=== PATIENT | female | born 1950 | race Caucasian/White ===

== ENCOUNTER → 2016-12-21 | Outpatient (CLI) | payer OTHER, MEDICARE ==
[~2016-12-21] MED LIST: ASPCH81X PO; LPR25 PO; OXYC-57 PO; PRAV20TA PO; ZTHM250 PO
[2016-12-21 12:44] LABS: BASO % 0.6 %; BASO ABS # 0.05 K/uL (0-0.2); COMPLETE YES; EOS % 0.9 %; HEMATOCRIT 46.2 % (37-47); IG% 0.2 %; LYMPH % 22.8 %; MEAN CELL VOLUME 94.1 fL (80-100); MEAN CORPUSCULAR HGB CONC 32.9 g/dl (32-36); MEAN PLATELET VOLUME 10.5 fL (7.4-10.4); MONO % 6.8 %; NEUT % 68.7 %; PLATELET COUNT 292 K/uL (130-400); RED BLOOD COUNT 4.91 M/uL (4.2-5.4); WHITE BLOOD COUNT 8.76 K/uL (4.8-10.8)
[2016-12-21 12:57] LABS: ALT/SGPT 47 U/L (12-78); BLOOD UREA NITROGEN 14 mg/dl (7-18); BUN/CREATININE RATIO 17.6 (10-20); CALCIUM 9.1 mg/dl (8.5-10.1); CARBON DIOXIDE 27 mmol/L (21-32); CHLORIDE 103 mmol/L (98-107); CHOLESTEROL 181 mg/dl (0-200); ESTIMATED AVERAGE GLUCOSE 117 mg/dl; GLUCOSE 99 mg/dl (70-99); HA1C FLAG Normal (Normal); SODIUM 138 mmol/L (136-145); TRIGLYCERIDES 68 mg/dl (0-150); VERY LOW DENSITY LIPOPROT CALC 14 mg/dl
[2016-12-21 12:58] LABS: ALKALINE PHOSPHATASE 100 U/L (45-117); AST/SGOT 40 U/L (15-37); CHOLESTEROL/HDL RATIO 2.5; HDL CHOLESTEROL 72 mg/dl
== END | disposition home or self-care (01) ==
LOC: C.LABSPEC 12:24
PROVIDERS: ATTEND Internal Medicine
DX: E78.5 Hyperlipidemia, unspecified (principal); R73.9 Hyperglycemia, unspecified; J44.9 Chronic obstructive pulmonary disease, unspecified; I47.1 Supraventricular tachycardia

== ENCOUNTER → 2017-02-02 | Outpatient (CLI) | payer OTHER, MEDICARE ==
[~2017-02-02] MED LIST changes: +ASPI81TA28 PO; +ATOR10TA82 PO; +AZIT-57 PO; +LEVO1TAB33 PO; +PRED5PAK3 PO; +SYMIN PO; +VNTHFA/IN INH; -ZTHM250 PO
--- NOTE | 2017-02-02 12:47 | MAMMOGRAPHY REPORT ---
BILATERAL DIGITAL SCREENING MAMMOGRAM WITH CAD: 02/02/2017 CLINICAL HISTORY: Routine screening. Patient has no complaints. TECHNIQUE: Bilateral CC and MLO views were obtained. Current study was also evaluated with a Comput er Aided Detection (CAD) system. COMPARISON: Comparison is made to exams dated: 01/07/2016 mammogram, 01/03/2015 mammogram, 01/01/2014 mammogram, 12/25/2012 mammogram, 12/27/2013 mammogram, and 12/16/2011 mammogram - [facility] enter. BREAST COMPOSITION: There are scattered areas of fibroglandular density in both breasts. FINDINGS: There are mild vascular calcifications in the breasts. No suspicious mass, architectural distortion or cluster of microcalcifications is seen. IMPRESSION: ACR BI-RADS CATEGORY 1: NEGATIVE There is no mammographic evidence of malignancy. A 1 year screening mammogram is recommended. The p atient will receive written notification of the results. Approximately 10% of breast cancers are not detected with mammography. A negative mammographic repor t should not delay biopsy if a clinically suggestive mass is present. Carile Tavares M.D. ay/:02/02/2017 11:19:51 Construction Grip: Meli GARCIA(Jennifer)(Mae), [facility] letter sent: Normal 1/2 BI-RADS Code: ACR BI-RADS Category 1: Negative
== END | disposition home or self-care (01) ==
LOC: C.MAMM 09:40
PROVIDERS: ATTEND Internal Medicine
DX: Z12.31 Encounter for screening mammogram for malignant neoplasm of breast (principal)

== ENCOUNTER 2017-02-19 13:24 | Emergency (ER) | payer OTHER, MEDICARE ==
[~2017-02-19] VITALS: Ht 154.9 cm; Wt 52.4 kg
[~2017-02-19 13:24] MED LIST changes: -ASPCH81X PO; -ASPI81TA28 PO; -ATOR10TA82 PO; -LEVO1TAB33 PO; -LPR25 PO; -OXYC-57 PO; -PRAV20TA PO; -PRED5PAK3 PO; -SYMIN PO; -VNTHFA/IN INH
[2017-02-19 13:37] VITALS: TEMP 36.4; Ht 154.9 cm; Wt 52.4 kg
[2017-02-19] MEDS ORDERED: ONDANSETRON INJ 2 MG/ML 2 ML VIAL IV STA (13:51)
[2017-02-19] MEDS ORDERED: MoRPHine SULFATE 4 MG/ML 1 ML CARP\\VIAL IV STA (13:51)
[2017-02-19] MEDS ORDERED: LPR25 PO (13:59)
[2017-02-19] MEDS ORDERED: ASPCH81X PO (13:59)
[2017-02-19] MEDS ORDERED: PRAV20TA PO (13:59)
--- NOTE | 2017-02-19 14:32 | DIAGNOSTIC IMAGING REPORT ---
LEFT HUMERUS 2 VIEWS HISTORY: Fall. distal humeral pain COMPARISON: None. FINDINGS: There is no fracture or dislocation. Soft tissues are unremarkable. No radiopaque foreign bodies. IMPRESSION: No fracture or dislocation within the left humerus. Electronically signed by: Aguilar Stevenson M.D. 02/19/2017 2:31 PM Dictated Date/Time: 02/19/2017 2:30 PM
--- NOTE | 2017-02-19 14:34 | DIAGNOSTIC IMAGING REPORT ---
LEFT WRIST 2 VIEW CLINICAL HISTORY: LEFT WRIST DEFORMITY. Fall. COMPARISON STUDY: None. FINDINGS: Diffuse soft tissue swelling. Impacted ulnar styloid fracture. There is also a comminuted and impacted distal radius fracture which likely extends to articular surface. This demonstrates dorsal angulation and 7 mm of dorsal displacement. IMPRESSION: Distal radius and ulnar styloid fractures as described above. Electronically signed by: Aguilar Stevenson M.D. 02/19/2017 2:32 PM Dictated Date/Time: 02/19/2017 2:31 PM
[2017-02-19] MEDS ORDERED: PROPOFOL IV EMULSION 10 MG/ML 20 ML VIAL IV ONE (14:47)
[2017-02-19 14:58] VITALS: BP 109/69; PULSE 55; O2SAT 93
--- NOTE | 2017-02-19 15:53 | EMERGENCY ROOM VISIT NOTE ---
Pre-Mod Sedation Assessment General Date of Moderate Sedation: Feb 19, 2017. Vital Signs: Vital Signs Past 12 Hours Date Time Temp Pulse Resp B/P Pulse Ox O2 Delivery O2 Flow Rate FiO2 02/19/17 14:58 55 20 109/69 93 Room Air 02/19/17 14:56 53 02/19/17 14:54 55 20 109/69 93 Room Air 02/19/17 13:37 36.4 57 18 120/79 93 Room Air Review Cardiovascular: regular rate, rhythm, no edema, no gallop, no murmur, normal peripheral pulses Abdomen: normal bowel sounds, non tender, soft Lungs: chest non-tender, no respiratory distress (Chronic cough with COPD), + wheezing Airway Class: III Pre-Sedation Airway Assessment Oral Cavity: Dentures Able to Visualize Vocal Cords: No Short Thick Neck: No Hx of Sleep Apnea: Yes (Snores loudly per ) Smoking Status: Current Every Day Smoker Mallampati Classification: Class II ASA Classification: Class III Procedure Planning Contraindications-for Mod Sed: None Yes Notes The planned sedation has been discussed with the patient and consent obtained. I have identified the patient, determined the appropriateness of sedation and have assessed the patient immediately prior to the procedure. All medicine(s) and interventions are by my order.
--- NOTE | 2017-02-19 15:56 | EMERGENCY ROOM VISIT NOTE ---
Post-Moderate Sedation Plan General Date of Moderate Sedation Feb 19, 2017. Vital Signs: Vital Signs Past 12 Hours Date Time Temp Pulse Resp B/P Pulse Ox O2 Delivery O2 Flow Rate FiO2 02/19/17 14:58 55 20 109/69 93 Room Air 02/19/17 14:56 53 02/19/17 14:54 55 20 109/69 93 Room Air 02/19/17 13:37 36.4 57 18 120/79 93 Room Air Review - Discharge Plan Post Moderate Sedation Plan: Procedural Sedation Indication: Left wrist fracture requiring sedation by Ortho - Dr Alvares. Last Ate: >6 hrs ago - toast Previous issues with sedation: Hypotension with Colonoscopy Snore: Yes Emergent: Yes ASA: III Dentures: Yes - removed Time Out: 15:31 Time Recovered: 15:49 Total time: 25 minutes including pre-sedation evaluation, sedation, post- sedation recovery, etc. Written consent was obtained after the risks and benefits were explained to the patient/, including, but not limited to aspiration, allergic reaction, breathing difficulties, cardiac complications, vomiting, pain, event recall, bleeding, and/or infection. Pre-sedation examination and paperwork completed. The patient was on 100% oxygen via NRB prior to the procedure. Continuos end tidal CO2 monitoring, pulse oximetry, and cardiac monitoring were utilized. Suction, airway equipment, medications, respiratory equipment, and appropriate personnel were prepared prior to the initiation of the procedure. A time out was taken. Sedation was achieved utilizing 90 mg of propofol. After I observed the patient had reached the appropriate level of sedation the main procedure was performed without complication. Sedation was discontinued and the monitoring continued. The patient recovered quickly from the effects of the medication without complication or adverse event. On clinical assessment, the patient appears to have tolerated the conscious sedation without complications. Patient is recovering as anticipated. Patient will continue to be monitored by nursing and may be discharged when conscious sedation discharge criteria are met.
--- NOTE | 2017-02-19 16:03 | DIAGNOSTIC IMAGING REPORT ---
LEFT WRIST 2 VIEW CLINICAL HISTORY: post reduction left wrist COMPARISON STUDY: Left wrist 02/19/2017. FINDINGS: Overlying cast material obscures fine bony detail. Status post reduction of the distal radius and ulnar styloid fractures. The alignment of the radius is near-anatomic. There is 4 mm of radial displacement of the ulnar styloid fracture. Diffuse soft tissue swelling. IMPRESSION: Reduction of the distal radius fracture which demonstrates near anatomic alignment. Mildly displaced ulnar styloid fracture. Electronically signed by: Aguilar Stevenson M.D. 02/19/2017 4:01 PM Dictated Date/Time: 02/19/2017 4:00 PM
[2017-02-19] MEDS ORDERED: OXYC-57 PO (16:04)
[2017-02-19 16:08] VITALS: BP 105/60; PULSE 60; O2SAT 92
[2017-02-19 16:17] VITALS: BP 138/70; PULSE 55; O2SAT 94
--- NOTE | 2017-02-19 16:35 | ORTHOPEDIC CONSULTATION ---
DATE OF CONSULTATION: 02/19/2017 CHIEF COMPLAINT: Displaced left distal radius fracture. HISTORY OF PRESENT ILLNESS: Jasmin is a pleasant 66-year-old female who fell earlier today, sustaining a fracture to her left distal radius. There was obvious deformity of her wrist. So she came to the Emergency Room where radiographs demonstrated displaced left distal radius fracture. Orthopedics was consulted for a closed reduction and treatment. PAST MEDICAL HISTORY: Hypertension, supraventricular tachycardia and bronchitis. MEDICATIONS: Include aspirin 81 mg daily, Lopressor 25 mg daily, and Pravachol daily. ALLERGIES: INCLUDE PENICILLIN AND SULFA DRUGS. PAST SURGICAL HISTORY: Denies. SOCIAL HISTORY: She is and is still active with her . REVIEW OF SYSTEMS: She complains of left wrist pain. All other pertinent review of systems are negative. PHYSICAL EXAMINATION: MUSCULOSKELETAL: There is a gross deformity of her left wrist. There is a dorsal angulation. There are no abrasions, lesions, lacerations of the skin. Her radial, median and ulnar nerves were all checked and intact. X-rays reviewed of the left distal radius do show mostly a 2-part left distal radius fracture with about 50% posterior translation of 45 degrees of dorsal angulation. IMPRESSION: Displaced left distal radius fracture. PLAN: We did a closed reduction in the Emergency Room. Post reduction radiographs did show near anatomic alignment. She was placed in a coaptation splint and given an arm sling. She was given oral pain medications. Instructed to follow up with [facility] in about 3-5 days for x-rays and placement in a cast.
--- NOTE | 2017-02-21 07:55 | OPERATIVE REPORT ---
DATE OF OPERATION: 02/19/2017 PREOPERATIVE DIAGNOSIS: Displaced left distal radius fracture. POSTOPERATIVE DIAGNOSIS: Same. PROCEDURE: Closed reduction and application of splint of the left distal radius fracture. SURGEON: Dr. Cesar Alvares. CHARGEMASTER ANALYST: None. ANESTHESIA: Sedation with propofol. COMPLICATIONS: None. CONDITION: Stable to PACU. INDICATIONS: Jasmin is a 66-year-old female who fell earlier today sustaining a displaced left distal radius fracture. She came to the Emergency Room where radiographs confirmed a significantly displaced fracture. She elected to undergo closed reduction. She understood the risks, benefits, alternatives to procedure and elected to proceed. The operative extremity was identified and a timeout was done. She was given propofol by the Emergency Room physician. Once proper sedation was obtained, the distal radius was easily reduced. She was then placed in a coaptation splint. Proper molding of the splint was done. Once this cement had hardened, x-rays were obtained and it showed near anatomic alignment of the fracture. She tolerated the procedure well. I attest to the content of the Intraoperative Record and any orders documented therein. Any exceptio ns are noted below.
--- NOTE | 2017-02-25 17:28 | EMERGENCY ROOM VISIT NOTE ---
ED Visit Note First contact with patient: 13:44 CHIEF COMPLAINT: Left wrist injury History of present illness: This 66-year-old white female patient complains of moderate constant left wrist pain today after a fall at home. She has an obvious deformity. The pain is worse with any movement of the wrist or digits. No laceration, no numbness or weakness. No other injury. The fall was not associated with dizziness or fainting. There were no palpitations, no chest pain, no difficulty breathing, no headache, no lightheadedness or weakness. Pain is 8/10. No prior history of significant wrist injury. Right-hand- dominant. Her accompanies her today. No treatment yet. REVIEW OF SYSTEM: HEENT: No dizziness, visual problems, hearing loss, or tinnitus. There is no difficulty swallowing and no oral lesions are present. LYMPH: No adenopathy. PULMONARY: No cough, shortness of breath, sputum production or hemoptysis. CARDIOVASCULAR: No chest pain, palpitations, shortness of breath or peripheral edema. GASTROINTESTINAL: No diarrhea, constipation, nausea, vomiting, or abdominal pain. GENITOURINARY: No dysuria, frequency, urgency or nocturia. NEUROLOGIC: No weakness, muscle tenderness, epilepsy or history of neurological problems. MUSCULOSKELETAL: No history of joint tenderness/swelling. Positive history of arthritis and arthralgias. SKIN: No rashes or lesions. ENDOCRINE: No history of diabetes, thyroid disorders, or abnormal hair growth. PMH: Supplemental sheet was reviewed and signed. Previous surgeries: None Medical history: Significant for hypertension and elevated cholesterol. History of SVT. Current medications: Aspirin, metoprolol, Pravachol Allergies: Penicillin and sulfa SOCIAL HISTORY: Patient lives at home with her . Positive tobacco use, no EtOH use. Retired. PHYSICAL EXAM: Vital Signs: Afebrile. Reviewed and filed in patient's chart. General: Well-developed, well-nourished, elderly white female, in no acute distress. Obvious discomfort. She is sitting on a bed. MENTAL STATUS: Alert and oriented. Skin: Warm and dry with good turgor. No rashes or lesions. No ecchymosis or erythema. The patient is not diaphoretic. No abrasions. Noticeable edema and deformity at the dorsal wrist. Musculoskeletal: There is tenderness over the distal radius with significant swelling. Range of motion is very limited secondary to pain. Obvious deformity. No pain with palpation over the metacarpal heads or digits. There is intact motion of the digits, including opposition and circumduction of the thumb. There is also pain with palpation over the proximal forearm and elbow. She has intact motor function to the elbow. No pain with palpation over the proximal humerus or shoulder. Neurologic: The hand is warm and well perfused and the fingers have normal sensation. Median, radial, and ulnar nerve functions are clearly intact. EMERGENCY DEPARTMENT COURSE: Radiographic images obtained today of the wrist are positive for comminuted significantly displaced distal radius fracture. Angulation of approximate 45. Left humerus films were unremarkable. These were read by radiology. DIAGNOSIS: Left wrist displaced distal radius fracture DISCHARGE INSTRUCTIONS & TREATMENT: The patient was educated regarding today's findings. Conservative care measures were discussed. IV was established. She was given morphine 4 mg IV and Zofran 4 mg IV for pain control. Radial Imaging was obtained. Consult was obtained from Dr. Alvares for reduction. Please see his dictation for final management. Conscious sedation was provided by Dr. Hay. Patient was seen in conjunction with Dr. Hay, who also evaluated the patient and concurred with today's diagnosis and treatment plan. Current/Historical Medications Scheduled Aspirin (Aspirin Chewable), 81 MG PO DAILY Metoprolol Tartrate (Lopressor), 12.5 MG PO BID Pravastatin (Pravachol ), 1 TAB PO DAILY Scheduled PRN Oxycodone/Acetaminophen 5MG/325MG (Percocet 5MG/325MG), 1-2 TABS PO Q6 PRN for Pain Allergies Coded Allergies: Penicillins (Unverified Allergy, Unknown, 02/19/17) Sulfa Drugs (Unverified Allergy, Unknown, 02/19/17) Vital Signs Date Time Temp Pulse Resp B/P Pulse Ox O2 Delivery O2 Flow Rate FiO2 02/19/17 16:17 55 18 138/70 94 Room Air 02/19/17 16:08 60 14 105/60 92 Room Air 02/19/17 15:55 50 16 104/64 99 Nasal Cannula 4.0 02/19/17 15:40 51 16 95/59 98 Nasal Cannula 6.0 02/19/17 15:35 54 14 98/59 93 Nasal Cannula 4.0 02/19/17 15:31 60 14 105/60 92 Room Air 02/19/17 14:58 55 20 109/69 93 Room Air 02/19/17 14:56 53 02/19/17 14:54 55 20 109/69 93 Room Air 02/19/17 13:37 36.4 57 18 120/79 93 Room Air Medications Administered Medications (Trade) Dose Ordered Sig/Sofia Route Start Time Stop Time Status Last Admin Dose Admin Morphine Sulfate (MoRPHine SULFATE INJ) 4 mg NOW STAT IV 02/19/17 13:51 02/19/17 13:54 DC 02/19/17 14:04 4 MG Ondansetron HCl (Zofran Inj) 4 mg NOW STAT IV 02/19/17 13:51 02/19/17 13:54 DC 02/19/17 14:04 4 MG Propofol (Diprivan Iv Emulsion 20ml Vial) 200 mg STK-MED ONCE IV 02/19/17 14:47 02/19/17 14:48 DC 02/19/17 15:35 20 MG Departure Information Impression Primary Impression: Fall at home Additional Impression: Closed fracture of left distal radius Dispostion Home / Self-Care Condition GOOD Prescriptions Oxycodone/Acetaminophen 5MG/325MG (PERCOCET 5MG/325MG) Tab 1-2 TABS PO Q6 Y for Pain, #24 TAB For Initial Treatment Prov: Jefferson Gill,P.A. 02/19/17 Referrals Gurjit Healy M.D. (PCP) Cesar Alvares, DO Forms CARE OF CASTS, WORK / SCHOOL INSTRUCTIONS, HOME CARE DOCUMENTATION FORM, IMPORTANT VISIT INFORMATION Patient Instructions Sedation Procedural, [facility] Additional Instructions Ice and elevate frequently to reduce pain and swelling Percocet 1-2 tablets every 6 hours as needed for severe pain-no driving Call Dr. Alvares's office on Tuesday for follow-up Keep the splint on and dry at all times Use your sling as needed for comfort Gentle finger motion daily to reduce swelling Return to the ED for any other concerns Problem Qualifiers
[2017-08-02] MEDS ORDERED: ATOR10TA82 PO (02:51)
[2017-08-02] MEDS ORDERED: ASPI81TA28 PO (02:52)
[2017-08-04] MEDS ORDERED: VNTHFA/IN INH (08:02)
[2017-08-04] MEDS ORDERED: PRED5PAK3 PO (08:02)
[2017-08-04] MEDS ORDERED: LEVO1TAB33 PO (08:02)
[2017-08-04] MEDS ORDERED: SYMIN PO (08:02)
== END 2017-02-19 16:30 | disposition home or self-care (01) ==
LOC: C.EDB 13:25 → C.ED 16:30
DX: S52.502A Unspecified fracture of the lower end of left radius, initial encounter for closed fracture (principal); W19.XXXA Unspecified fall, initial encounter; I10 Essential (primary) hypertension; E78.00 Pure hypercholesterolemia, unspecified; Z72.0 Tobacco use; Z79.82 Long term (current) use of aspirin; Z79.899 Other long term (current) drug therapy

== ENCOUNTER → 2017-06-21 | Outpatient (CLI) | payer OTHER, MEDICARE ==
[~2017-06-21] MED LIST changes: +ASPCH81X PO; +ASPI81TA28 PO; +ATOR10TA88 PO; -AZIT-57 PO; +LEVO1TAB33 PO; +LPR25 PO; +OXYC-57 PO; +PRAV20TA PO; +PRED5PAK3 PO; +SYMIN PO; +VNTHFA/IN INH
[2017-06-21 13:19] LABS: ESTIMATED AVERAGE GLUCOSE 123 mg/dl; HA1C FLAG Normal (Normal)
[2017-06-21 13:31] LABS: BLOOD UREA NITROGEN 10 mg/dl (7-18); BUN/CREATININE RATIO 15.3 (10-20); CALCIUM 9.1 mg/dl (8.5-10.1); CARBON DIOXIDE 28 mmol/L (21-32); CHLORIDE 104 mmol/L (98-107); CHOLESTEROL 156 mg/dl (0-200); CREATININE 0.66 mg/dl (0.60-1.20); GLUCOSE 98 mg/dl (70-99); SODIUM 138 mmol/L (136-145)
[2017-06-21 13:34] LABS: CHOLESTEROL/HDL RATIO 2.1; HDL CHOLESTEROL 73 mg/dl; TRIGLYCERIDES 64 mg/dl (0-150); VERY LOW DENSITY LIPOPROT CALC 13 mg/dl
== END | disposition home or self-care (01) ==
LOC: C.LABSPEC 12:16
PROVIDERS: ATTEND Internal Medicine
DX: R73.9 Hyperglycemia, unspecified (principal); E78.5 Hyperlipidemia, unspecified

== ENCOUNTER → 2017-12-20 | Outpatient (CLI) | payer OTHER, MEDICARE ==
[~2017-12-20] MED LIST changes: -ASPCH81X PO; +ATOR10TA82 PO; -ATOR10TA88 PO; -LEVO1TAB33 PO; -OXYC-57 PO; -PRAV20TA PO; -PRED5PAK3 PO
[2017-12-20 13:31] LABS: HEMOGLOBIN A1C 5.9 % (4.5-5.6)
[2017-12-20 13:59] LABS: ALBUMIN 3.6 gm/dl (3.4-5.0); ALKALINE PHOSPHATASE 102 U/L (45-117); ALT/SGPT 35 U/L (12-78); AST/SGOT 21 U/L (15-37); BLOOD UREA NITROGEN 18 mg/dl (7-18); CALCIUM 8.8 mg/dl (8.5-10.1); CARBON DIOXIDE 25 mmol/L (21-32); CHOLESTEROL 175 mg/dl (0-200); CREATININE 0.78 mg/dl (0.60-1.20); GLUCOSE 108 mg/dl (70-99); LDL CHOLESTEROL (DIRECT) 108 mg/dl; POTASSIUM 3.7 mmol/L (3.5-5.1); SODIUM 138 mmol/L (136-145)
== END | disposition home or self-care (01) ==
LOC: C.LABSPEC 12:18
PROVIDERS: ATTEND Internal Medicine
DX: E78.5 Hyperlipidemia, unspecified (principal); R73.9 Hyperglycemia, unspecified; J44.9 Chronic obstructive pulmonary disease, unspecified

== ENCOUNTER 2019-09-02 16:18 | Inpatient (IN) ==
[2019-09-02] MEDS ORDERED: methylPREDNISolone 125 MG/2 ML VIAL IV STA (16:47)
[2019-09-02] MEDS ORDERED: ALBUT/IPRATROP 3MG/0.5MG NEB 3 ML VIAL NEB ONE (16:47)
[2019-09-02 17:09] LABS: Basophils # (auto) 0.04 K/uL (0-0.2); Basophils % (auto) 0.4 %; Eosinophils # (auto) 0.59 K/uL (0-0.5); Eosinophils % (auto) 5.6 %; Hematocrit (blood only) 44.5 % (37-47); Hemoglobin 15.1 g/dL (12.0-16.0); Immature Granulocytes # (auto) 0.02 K/uL (0.00-0.02); Immature Granulocytes % (auto) 0.2 %; Lymphocytes # (auto) 2.24 K/uL (1.2-3.4); Lymphocytes % (auto) 21.2 %; Mean Corpuscular Hemoglobin 32.3 pg (25-34); Mean Corpuscular Hgb Conc 33.9 g/dL (32-36); Mean Corpuscular Volume 95.1 fL (80-100); Monocytes # (auto) 1.12 K/uL (0.11-0.59); Monocytes % (auto) 10.6 %; Neutrophils # (auto) 6.58 K/uL (1.4-6.5); Platelet Count 254 K/uL (130-400); RDW Coefficient of Variation 13.2 % (11.5-14.5); RDW Standard Deviation 45.8 fL (36.4-46.3); Red Blood Count 4.68 M/uL (4.2-5.4); White Blood Count 10.59 K/uL (4.8-10.8)
--- NOTE | 2019-09-02 17:09 | XRay Report ---
XR chest 1V portable CLINICAL HISTORY: 69 years-old Female presenting with sob, cough. TECHNIQUE: Portable upright AP view of the chest was obtained. COMPARISON: 10/23/2015. FINDINGS: Atherosclerosis of the aortic arch. Cardiac silhouette mildly enlarged. Lungs are hyperinflated. No f ocal opacity. No pleural effusion or pneumothorax. Degenerative changes of the thoracic spine. Osteop enia may be present. Upper abdomen normal. IMPRESSION: 1. Mild hyperinflation could suggest underlying obstructive lung disease. 2. Mild cardiomegaly. No volume overload or congestive change. Electronically signed by: Kory Chakraborty M.D. 09/02/2019 5:07 PM
[2019-09-02 17:26] LABS: Alanine Aminotransferase 38 U/L (12-78); Albumin Level 3.6 gm/dl (3.4-5.0); Aspartate Aminotransferase 30 U/L (15-37); BUN Creatinine Ratio 17.3 (10-20); Blood Urea Nitrogen 12 mg/dl (7-18); Calcium 9.5 mg/dl (8.5-10.1); Carbon Dioxide 28 mmol/L (21-32); Chloride 106 mmol/L (98-107); Est GFR (African American) 102.5; Est GFR (Non-African American) 88.4; Glucose 91 mg/dl (70-99); Potassium 3.7 mmol/L (3.5-5.1); Sodium 140 mmol/L (136-145)
[2019-09-02 17:31] LABS: Alkaline Phosphatase 118 U/L (45-117); Bilirubin,Total 0.2 mg/dl (0.2-1); Globulin 3.5 gm/dl (2.5-4.0); NT Pro B Type Natriuretic Pept 233 pg/ml (0-900); Total Protein 7.1 gm/dl (6.4-8.2); Troponin I < 0.015 ng/ml (0-0.045)
[2019-09-02] MEDS ORDERED: MAGNESIUM SULFATE / D5W 1 GM/100 ML BAG IV ONE (17:49)
[2019-09-02 18:01] LABS: Influenza A virus by PCR Neg for Influ A (Neg); Influenza B virus by PCR Neg for Influ B (Neg)
[2019-09-02] MEDS ORDERED: ALBUT/IPRATROP 3MG/0.5MG NEB 3 ML VIAL NEB STA ×2 (19:17→20:05)
[2019-09-02] MEDS ORDERED: XOPENEX/ATROVENT 1.25mg/0.5MG NEB COMBO NEB STA (20:24)
[2019-09-02] MEDS ORDERED: LEVALBUTEROL 1.25MG/0.5ML NEB INH SCH (20:30)
[2019-09-02] MEDS ORDERED: IPRATROPIUM BROMIDE NEB SOLN 0.02% 2.5 ML VIAL INH SCH (20:30)
--- NOTE | 2019-09-02 20:55 | Emergency Department Note ---
Entered by Aishwarya Elias acting as a scribe for Susy Garduno DO History of Present Illness General Chief complaint: Shortness of Breath/Dyspnea Stated complaint: COLD, COPD, SOB Time Seen by Provider: 09/02/19 16:35 Source: patient and family () History of Present Illness Onset (ago): hour(s) (today) Location: chest Pain Consistency: + constant Maximum Pain Intensity: 0 Associated symptoms: + denies other symptoms (weather changing allergies), + shortness of breath and + other (cold symptoms) The patient is a 69 year old female with a PMHx pertinent for COPD, bronchitis, SVT, vascular stents, and other relevant medical problems indicated on Jianjian who presents to the Emergency Room with complaints of shortness of breath. The p atient states that she recently has been experiencing cold symptoms which she believes led to recent shortness of breath. She explains that her shortness of breath has worsened this morning prompting her ED visit. Her also reports that the patient was around "furry animals" 1 day ago which he believes may have exacerbated her shortness of breath. Additionally, the patient reports use of inhaler at home. She also explains that she has had COPD for a few years but she does not wear oxygen at home and does not follow up with a manager news. However, she states that she follows up with Dr. Gonzalez periodically. The patient also admits that she has a recent UTI but is now resolved after finishing antibiotics. Of note, she reports that she is unsure of recent sickness exposure and did not receive a flu shot of pneumonia shot this year. She denies using a nebulizer at home, weather changing allergies, history of CHF, and history of hospital admissions for exacerbated COPD. The patient offers no additional complaints at this time. Home Medications Home Medications Medication Instructions Recorded Confirmed Type albuterol sulfate [Ventolin HFA] 2 puff INHALATION Q4 PRN 09/02/19 09/02/19 History aspirin [Aspir-81] 81 mg PO DAILY 09/02/19 09/02/19 History atorvastatin 10 mg PO DAILY 09/02/19 09/02/19 History budesonide [Pulmicort Flexhaler] 1 inh INHALATION BID 09/02/19 09/02/19 History metoprolol tartrate 12.5 mg PO BID 09/02/19 09/02/19 History Allergies Allergy/AdvReac Type Severity Reaction Status Date / Time Sulfa (Sulfonamide Allergy Severe "BLOOD Verified 09/02/19 17:20 Antibiotics) POISONING" Penicillins Allergy Unknown HAPPENED Verified 09/02/19 17:20 A CHILD Past Med/Surg History Medical History COPD (chronic obstructive pulmonary disease) Iliac artery stenosis, bilateral With stent placement. Paroxysmal atrial tachycardia Surgical History History of appendectomy History of tonsillectomy S/P [facility] Family History Father , age 61 yr Myocardial infarction Mother , In 70's Colorectal cancer Social History Preferred Language: Malay Communication Ability: Effective Assistant Site Manager Required: No Beliefs That Will Affect Care: None Current Living Situation: Spouse Feels Safe at Home: Yes Smoking Status: Current every day smoker Tobacco Type: cigarettes ; Cigarettes Per Day: 10 ; Second Hand Exposure: No ; Hx Alcohol Use: No Hx Substance Use: No Review of Systems See HPI for pertinent positives & negatives. and A total of 10 systems reviewed and were otherwise negative Physical Exam Vital Signs Vital Signs - 24 hr 09/02/19 16:20 09/02/19 16:29 09/02/19 16:30 Temperature 36.8 C Temperature Source Oral Sepsis Recent Fever Within 48 Hours No Sepsis New/Unexplained Change in Mental Status No Sepsis Action Taken by Nursing No Action Required Pulse Rate 92 H Pulse Rate [Finger] 80 Respiratory Rate 22 22 Respiratory Effort / Characteristics Respiratory Depth Blood Pressure 137/55 L Blood Pressure [Right Arm] 146/86 H Blood Pressure Mean 82 Blood Pressure Mean [Right Arm] 106 Blood Pressure Position Sitting Blood Pressure Position [Right Arm] Pulse Oximetry 95 92 92 Oxygen Delivery Method Room Air Room Air Room Air Fraction of Inspired Oxygen 09/02/19 17:20 09/02/19 18:22 09/02/19 19:35 Temperature Temperature Source Sepsis Recent Fever Within 48 Hours Sepsis New/Unexplained Change in Mental Status Sepsis Action Taken by Nursing Pulse Rate 86 Pulse Rate [Finger] 66 95 H Respiratory Rate 18 22 18 Respiratory Effort / Characteristics Non-Labored Spontaneous Non-Labored Respiratory Depth Normal Blood Pressure Blood Pressure [Right Arm] 108/65 Blood Pressure Mean Blood Pressure Mean [Right Arm] 79 Blood Pressure Position Blood Pressure Position [Right Arm] Pulse Oximetry 97 98 99 Oxygen Delivery Method Room Air Room Air Fraction of Inspired Oxygen 28 09/02/19 19:39 09/02/19 20:15 09/02/19 21:36 Temperature 36.7 C Temperature Source Oral Sepsis Recent Fever Within 48 Hours Sepsis New/Unexplained Change in Mental Status Sepsis Action Taken by Nursing Pulse Rate Pulse Rate [Finger] 94 H 104 H 101 H Respiratory Rate 18 24 20 Respiratory Effort / Characteristics Non-Labored Spontaneous Respiratory Depth Normal Blood Pressure Blood Pressure [Right Arm] 112/64 108/58 L Blood Pressure Mean Blood Pressure Mean [Right Arm] 80 74 Blood Pressure Position Blood Pressure Position [Right Arm] Lying Lying Pulse Oximetry 99 94 94 Oxygen Delivery Method Room Air Room Air BiPAP Fraction of Inspired Oxygen GENERAL: alert, well appearing, well nourished, no distress, non-toxic EYE EXAM: normal conjunctiva, PERRL and EOM's grossly intact OROPHARYNX: no exudate, no erythema, lips, buccal mucosa, and tongue normal and mucous membranes are moist NECK: supple, no nuchal rigidity, no adenopathy, non-tender LUNGS: Clear to auscultation. Normal chest wall mechanics. Barrel chested. Decreased breath sounds and scattered expiratory wheezes bilaterally. No retractions. HEART: no murmurs, S1 normal and S2 normal ABDOMEN: abdomen soft, non-tender, normo-active bowel sounds, no masses, no rebound or guarding. BACK: Back is symmetrical on inspection and there is no deformity, no midline tenderness, no CVA tenderness. SKIN: no rashes and no bruising, no petechiae UPPER EXTREMITIES: upper extremities are grossly normal. FROM, nml pulses b/l. LOWER EXTREMITIES: No pitting edema. FROM, nml pulses b/l. NEURO EXAM: Normal sensorium, cranial nerves II-XII grossly intact, normal speech, no gross weakness of arms, no gross weakness of legs. Gross sensation intact. Course 163: Past medical records reviewed. The patient was evaluated in room C03. A complete history and physical exam was performed. 1900: I checked on the patient and she reports that she is feeling minimally better following breathing treatment. I also updated her on her test results. 2052: Re-evaluated the patient who states she feels better with Bipap. Her heartrate is now improved and she will be admitted. 2102: Spoke with Dr. Peterson, [facility] who accepts the patient for admission. The patient verbally expressed understanding and agreement of the treatment plan. The patient will be evaluated for further treatment. Administered Medications Discontinued Medications Albuterol (Duoneb) 12 ml NEB ONE ONE Stop: 09/02/19 16:48 Last Admin: 09/02/19 17:20 Dose: 12 ml Documented by: [id number] Albuterol (Duoneb) 3 ml NEB NOW STA Stop: 09/02/19 19:18 Last Admin: 09/02/19 19:39 Dose: 3 ml Documented by: [id number] Albuterol (Duoneb) 3 ml NEB NOW STA Stop: 09/02/19 20:06 Last Admin: 09/02/19 21:22 Dose: Not Given Documented by: [id number] Magnesium Sulfate/Dextrose (Magnesium Sulfate / D5w) 1 gm in 100 mls @ 100 mls/hr IV ONE ONE Stop: 09/02/19 18:48 Last Infusion: 09/02/19 18:57 Dose: 0 mls/hr Documented by: [id number] Admin: 09/02/19 17:56 Dose: 100 mls/hr Documented by: [id number] Ipratropium [place] (Atrovent 0.02% 0.5mg/2.5ml) 0.5 mg INH UD JASSON Stop: 10/02/19 20:29 Last Admin: 09/02/19 20:54 Dose: 0.5 mg Documented by: [id number] Levalbuterol HCl (Xopenex 1.25mg/0.5ml Neb) 1.25 mg INH UD JASSON Stop: 10/02/19 20:29 Last Admin: 09/02/19 20:54 Dose: 1.25 mg Documented by: [id number] Methylprednisolone (Solumedrol) 60 mg IV NOW STA Stop: 09/02/19 16:48 Last Admin: 09/02/19 17:07 Dose: 60 mg Documented by: [id number] Miscellaneous (Levalbuterol/Ipratropium 1.25mg) 1 ea NEB NOW STA Stop: 09/02/19 20:25 Last Admin: 09/02/19 20:54 Dose: Not Given Documented by: [id number] Medical Decision Making Differential Diagnosis Differential diagnosis includes but is not limited to etiologies such as infections, reactive airway disease, pneumonia, pneumothorax, COPD, CHF, cardiac ischemia, pulmonary embolism, musculoskeletal, gastrointestinal, as well as others were entertained. Medical Records Attestation: I reviewed the patient's medical records. Home Medications Current Medication List: was personally reviewed by me Laboratory Data Attestation: I reviewed the patient's lab results. Result diagrams: 09/02/19 16:48 09/02/19 16:48 Lab Results 09/02/19 09/02/19 09/02/19 Range/Units 16:48 16:48 17:09 WBC 10.59 (4.8-10.8) K/uL RBC 4.68 (4.2-5.4) M/uL Hgb 15.1 (12.0-16.0) g/dL Hct 44.5 (37-47) % MCV 95.1 (80-100) fL MCH 32.3 (25-34) pg MCHC 33.9 (32-36) g/dL RDW Std Deviation 45.8 (36.4-46.3) fL RDW Coeff of Alize 13.2 (11.5-14.5) % Plt Count 254 (130-400) K/uL MPV 10.0 (7.4-10.4) fL Immature Gran % (Auto) 0.2 % Neut % (Auto) 62.0 % Lymph % (Auto) 21.2 % [place] % (Auto) 10.6 % Eos % (Auto) 5.6 % Baso % (Auto) 0.4 % Immature Gran # (Auto) 0.02 (0.00-0.02) K/uL Neut # (Auto) 6.58 H (1.4-6.5) K/uL Lymph # (Auto) 2.24 (1.2-3.4) K/uL [place] # (Auto) 1.12 H (0.11-0.59) K/uL Eos # (Auto) 0.59 H (0-0.5) K/uL Baso # (Auto) 0.04 (0-0.2) K/uL Sodium 140 (136-145) mmol/L Potassium 3.7 (3.5-5.1) mmol/L Chloride 106 (98-107) mmol/L Carbon Dioxide 28 (21-32) mmol/L Anion Gap 7.0 (3-11) BUN 12 (7-18) mg/dl Creatinine 0.67 (0.6-1.2) mg/dl Est Cr Clr Drug Dosing 57.0 ml/min Est GFR ( Amer) 102.5 Est GFR (Non-Af Amer) 88.4 BUN/Creatinine Ratio 17.3 (10-20) Glucose 91 (70-99) mg/dl Calcium 9.5 (8.5-10.1) mg/dl Magnesium 2.0 (1.8-2.4) mg/dl Total Bilirubin 0.2 (0.2-1) mg/dl AST 30 (15-37) U/L ALT 38 (12-78) U/L Alkaline Phosphatase 118 H (45-117) U/L Troponin I < 0.015 (0-0.045) ng/ml NT-Pro-B Natriuret Pep 233 (0-900) pg/ml Total Protein 7.1 (6.4-8.2) gm/dl Albumin 3.6 (3.4-5.0) gm/dl Globulin 3.5 (2.5-4.0) gm/dl Albumin/Globulin Ratio 1.0 (0.9-2) Influenza Type A (PCR) Neg for Influ A (Neg) Influenza Type B (PCR) Neg for Influ B (Neg) Imaging Data Radiologist's Impression: Radiology results as stated below per my review and the radiologist's interpretation: XR chest 1V portable CLINICAL HISTORY: 69 years-old Female presenting with sob, cough. TECHNIQUE: Portable upright AP view of the chest was obtained. COMPARISON: 10/23/2015. FINDINGS: Atherosclerosis of the aortic arch. Cardiac silhouette mildly enlarged. Lungs are hyperinflated. No focal opacity. No pleural effusion or pneumothorax. Degenerative changes of the thoracic spine. Osteopenia may be present. Upper abdomen normal. IMPRESSION: 1. Mild hyperinflation could suggest underlying obstructive lung disease. 2. Mild cardiomegaly. No volume overload or congestive change. Electronically signed by: Kory Chakraborty M.D. 09/02/2019 5:07 PM ECG Data Attestation: I personally reviewed and interpreted this ECG as follows: Indication: + SOB/dyspnea Rate (beats per minute): 91 Rhythm: + sinus rhythm ECG Intervals/blocks: + Normal QRS ECG [place]: + Normal ECG Findings: + Other (normal QTc, artifact noted, no acute ischemic changes ) Blood Pressure Blood Pressure Findings: Elevated blood pressure Blood Pressure Disposition: Referred to patients primary care provider MDM Narrative Patient here well-appearing despite increased work of breathing. Patient with known COPD and likely superimposed upper respiratory infection. Patient's labs and imaging reassuring. Patient initially given an hour-long nebulizer treatment which did not provide significant relief in addition to steroids and IV magnesium. She was then given an additional DuoNeb treatment and still had persistent wheezing. After additional evaluation and discussion with RT, patient was started on BiPAP and a Xopenex nebulizer was given. Patient reported feeling markedly improved with the addition of BiPAP positive pressure. Patient never overtly hypoxic. Once patient's work of breathing decreased, patient's tachycardia did improve and patient appeared more relaxed. I do not suspect occult pneumonia at this time. Influenza was negative. Patient's other labs reassuring. I do not suspect PE or other cardiac etiology. Case discussed with hospitalist for additional evaluation management. Impression & Plan Acute exacerbation of chronic obstructive airways disease Discharge Plan Visit Data *Final* Discharge Date/Time: 09/02/19 22:18 Chief Complaint: Shortness of Breath/Dyspnea Stated Complaint: COLD, COPD, SOB ED Provider: Susy Garduno Discharge Problem: Acute exacerbation of chronic obstructive airways disease Patient Disposition: Admitted As Inpatient Condition: Good Discharge Instructions Interventions: ED Discharge Assessment Last Done: 09/02/19 22:18 The scribe's documentation has been prepared under my direction and personally reviewed by me in its entirety. I confirm that the note above accurately reflects all work, treatment, procedures, and medical decision making performed by me.
[2019-09-02] MEDS ORDERED: ALBUT/IPRATROP 3MG/0.5MG NEB 3 ML VIAL NEB PRN (21:37)
--- NOTE | 2019-09-02 22:05 | History & Physical Report ---
Date of Service September 02, 2019 Assessment & Plan (1) Acute exacerbation of chronic obstructive airways disease: Admit PCU BIPAP overnight - re-evaluate need in the am Solumedrol 60mg dose given in ED, will continue with 40mg Q6 hours Rocephin and azithromycin to cover usual offenders PRN duonebs DVT prophylaxis = SCDs and Lovenox. (2) Bronchitis: (3) Hyperlipidemia: Continue atorvastatin (4) Paroxysmal atrial tachycardia: Controlled with Metoprolol 12.5mg BID. History of Present Illness 69 year old female presented to the ED with SOB that has been for a few days, but became worse this afternoon. reports that patient had been around "furry animals" the previous day which he feels caused this exacerbation. She feels that she had "cold symptoms" including runny nose, dry cough. No F/C, chest pain, N/V/D. She has known COPD, but has never been intubated due to COPD. She does not follow with pulmonology. Primary Care Provider: Gurjit Parada MD Allergies Allergy/AdvReac Type Severity Reaction Status Date / Time Sulfa (Sulfonamide Allergy Severe "BLOOD Verified 09/02/19 17:20 Antibiotics) POISONING" Penicillins Allergy Unknown HAPPENED Verified 09/02/19 17:20 A CHILD Home Medications Home Medications Medication Instructions Recorded Confirmed Type albuterol sulfate [Ventolin HFA] 2 puff INHALATION Q4 PRN 09/02/19 09/02/19 History aspirin [Aspir-81] 81 mg PO DAILY 09/02/19 09/02/19 History atorvastatin 10 mg PO DAILY 09/02/19 09/02/19 History budesonide [Pulmicort Flexhaler] 1 inh INHALATION BID 09/02/19 09/02/19 History metoprolol tartrate 12.5 mg PO BID 09/02/19 09/02/19 History Past Med/Surg History Medical History COPD (chronic obstructive pulmonary disease) Iliac artery stenosis, bilateral With stent placement. Paroxysmal atrial tachycardia Surgical History History of appendectomy History of tonsillectomy S/P [facility] Family History Father , age 61 yr Myocardial infarction Mother , In 70's Colorectal cancer Social History Preferred Language: Spanish Feels Safe at Home: Yes Smoking Status: Current every day smoker Review of Systems Review of Systems: Constitutional- no fever; no weight loss Eyes- no acute visual changes ENT- + clear nasal drainage, no pharyngitis Pulmonary- As in HPI Cardiac- no chest pain, no palpitations, no orthopnea, no dependent edema GI- no nausea, no vomiting, no diarrhea, no melena, no hematochezia - no dysuria, no hematuria Musculoskeletal- no arthralgias, no myalgias Derm- no rashes, no new skin lesions, no changing skin lesions Hematologic- no unusual bruising, no unusual bleeding Lymphatics- no adenopathy Endocrine- no polyuria or polydipsia; no heat or cold intolerance Neuro- no headaches, no focal neurologic symptoms Psych- no anxiety, no depression Physical Exam Physical Exam: General- adult female, on BIPAP, NAD Head- atraumatic Eyes- PERRL, EOMI, anicteric ENT- oropharynx clear Neck- supple, no JVD, no adenopathy, no thyromegaly. Lungs- + expiratory wheezes b/l. No rhonchi, No crackles. Heart- regular rhythm; no murmur, no gallop, no rub appreciated Abdomen- normal bowel sounds, soft, nontender. Extremities- no pretibial edema, no calf tenderness; peripheral pulses intact Neuro- alert, oriented x 3; PERRL, EOMI; electrical foreman II-XII grossly intact, non-focal. Skin- warm & dry Results & Data Vital Signs (Past 12 Hours) Vital Signs Temp Pulse Pulse Resp BP BP Pulse Ox 09/02/19 21:36 101 H 20 108/58 L 94 09/02/19 20:15 104 H 24 112/64 94 09/02/19 19:39 94 H 18 99 09/02/19 19:35 86 18 99 09/02/19 18:22 95 H 22 108/65 98 09/02/19 17:20 66 18 97 09/02/19 16:30 80 22 146/86 H 92 09/02/19 16:29 92 09/02/19 16:20 36.8 C 92 H 22 137/55 L 95 Laboratory Results Laboratory Results WBC 10.59 K/uL (4.8-10.8) 09/02/19 16:48 RBC 4.68 M/uL (4.2-5.4) 09/02/19 16:48 Hgb 15.1 g/dL (12.0-16.0) 09/02/19 16:48 Hct 44.5 % (37-47) 09/02/19 16:48 MCV 95.1 fL (80-100) 09/02/19 16:48 MCH 32.3 pg (25-34) 09/02/19 16:48 MCHC 33.9 g/dL (32-36) 09/02/19 16:48 RDW Std Deviation 45.8 fL (36.4-46.3) 09/02/19 16:48 RDW Coeff of Alize 13.2 % (11.5-14.5) 09/02/19 16:48 Plt Count 254 K/uL (130-400) 09/02/19 16:48 MPV 10.0 fL (7.4-10.4) 09/02/19 16:48 Immature Gran % (Auto) 0.2 % 09/02/19 16:48 Neut % (Auto) 62.0 % 09/02/19 16:48 Lymph % (Auto) 21.2 % 09/02/19 16:48 [place] % (Auto) 10.6 % 09/02/19 16:48 Eos % (Auto) 5.6 % 09/02/19 16:48 Baso % (Auto) 0.4 % 09/02/19 16:48 Immature Gran # (Auto) 0.02 K/uL (0.00-0.02) 09/02/19 16:48 Neut # (Auto) 6.58 K/uL (1.4-6.5) H 09/02/19 16:48 Lymph # (Auto) 2.24 K/uL (1.2-3.4) 09/02/19 16:48 [place] # (Auto) 1.12 K/uL (0.11-0.59) H 09/02/19 16:48 Eos # (Auto) 0.59 K/uL (0-0.5) H 09/02/19 16:48 Baso # (Auto) 0.04 K/uL (0-0.2) 09/02/19 16:48 Sodium 140 mmol/L (136-145) 09/02/19 16:48 Potassium 3.7 mmol/L (3.5-5.1) 09/02/19 16:48 Chloride 106 mmol/L (98-107) 09/02/19 16:48 Carbon Dioxide 28 mmol/L (21-32) 09/02/19 16:48 Anion Gap 7.0 (3-11) 09/02/19 16:48 BUN 12 mg/dl (7-18) 09/02/19 16:48 Creatinine 0.67 mg/dl (0.6-1.2) 09/02/19 16:48 Est Cr Clr Drug Dosing 57.0 ml/min 09/02/19 16:48 Est GFR ( Amer) 102.5 09/02/19 16:48 Est GFR (Non-Af Amer) 88.4 09/02/19 16:48 BUN/Creatinine Ratio 17.3 (10-20) 09/02/19 16:48 Glucose 91 mg/dl (70-99) 09/02/19 16:48 Calcium 9.5 mg/dl (8.5-10.1) 09/02/19 16:48 Magnesium 2.0 mg/dl (1.8-2.4) 09/02/19 16:48 Total Bilirubin 0.2 mg/dl (0.2-1) 09/02/19 16:48 AST 30 U/L (15-37) 09/02/19 16:48 ALT 38 U/L (12-78) 09/02/19 16:48 Alkaline Phosphatase 118 U/L (45-117) H 09/02/19 16:48 Troponin I < 0.015 ng/ml (0-0.045) 09/02/19 16:48 NT-Pro-B Natriuret Pep 233 pg/ml (0-900) 09/02/19 16:48 Total Protein 7.1 gm/dl (6.4-8.2) 09/02/19 16:48 Albumin 3.6 gm/dl (3.4-5.0) 09/02/19 16:48 Globulin 3.5 gm/dl (2.5-4.0) 09/02/19 16:48 Albumin/Globulin Ratio 1.0 (0.9-2) 09/02/19 16:48 Influenza Type A (PCR) Neg for Influ A (Neg) 09/02/19 17:09 Influenza Type B (PCR) Neg for Influ B (Neg) 09/02/19 17:09 Diagnostic Findings [place], [place] [phone] XRay Report Patient: RETA ZAVALA IAdmit Date: 09/02/19 MR#: [id number]: [address] Acct ID:[id number]: Date: 1950ty Zip: [place] [address] Age: 69Location: ED Sex: F Room/Bed: Att Phy:Diagnosis: COLD, COPD, SOB Yadi Phy: Gurjit Healy M.D.Service Date: 09/02/19 Fam Phy:Interpreting Phy: Kory Chakraborty MD Admit Phy: Ordering Phy: Susy Garduno DO cc: ~ XR chest 1V portable CLINICAL HISTORY: 69 years-old Female presenting with sob, cough. TECHNIQUE: Portable upright AP view of the chest was obtained. COMPARISON: 10/23/2015. FINDINGS: Atherosclerosis of the aortic arch. Cardiac silhouette mildly enlarged. Lungs are hyperinflated. No focal opacity. No pleural effusion or pneumothorax. Degenerative changes of the thoracic spine. Osteopenia may be present. Upper abdomen normal. IMPRESSION: 1. Mild hyperinflation could suggest underlying obstructive lung disease. 2. Mild cardiomegaly. No volume overload or congestive change. Electronically signed by: Kory Chakraborty M.D. 09/02/2019 5:07 PM Dictated: 09/02/191705 Transcribed: 09/02/191705 Code Status & VTE Plan VTE Prophylaxis Plan VTE Prophylaxis will be ordered: Yes PG Care Time/CCT Total # of Minutes Spent Total Time Spent: 55 Total Time Spent with Patient: Total time spent is greater than 50% in coordination of care (as documented) at patient's floor/unit and/or counseling patient:
[2019-09-02] MEDS ORDERED: ACETAMINOPHEN 325 MG TAB PO PRN (22:52)
[2019-09-02] MEDS ORDERED: ONDANSETRON INJ 2 MG/ML 2 ML VIAL IV PRN (22:52)
[2019-09-03] MEDS: FAMOTIDINE 20 MG TAB PO SCH ×3 (00:37→20:42)
[2019-09-03] MEDS: cefTRIAXone SODIUM 1,000 MG in DEXTROSE 5% 50 ML IV SCH (00:37)
[2019-09-03] MEDS: METOPROLOL TARTRATE 25 MG TAB PO SCH ×3 (00:38→20:42)
[2019-09-03] MEDS: AZITHROMYCIN 500 MG in DEXTROSE 5% 250 ML IV SCH (01:31)
[2019-09-03] MEDS: methylPREDNISolone 40 MG in SYRINGE 0 ML IV SCH ×4 (02:36→20:40)
[2019-09-03 06:31] LABS: Hematocrit (blood only) 40.6 % (37-47); Hemoglobin 13.6 g/dL (12.0-16.0); Mean Corpuscular Hemoglobin 31.9 pg (25-34); Mean Corpuscular Hgb Conc 33.5 g/dL (32-36); Mean Corpuscular Volume 95.3 fL (80-100); Mean Platelet Volume 9.9 fL (7.4-10.4); Platelet Count 242 K/uL (130-400); RDW Coefficient of Variation 13.3 % (11.5-14.5); RDW Standard Deviation 46.4 fL (36.4-46.3); Red Blood Count 4.26 M/uL (4.2-5.4); White Blood Count 9.13 K/uL (4.8-10.8)
[2019-09-03 07:12] LABS: BUN Creatinine Ratio 15.6 (10-20); Creatinine Clr Calc Pharmacy 60.8 ml/min; Est GFR (African American) 104.1; Est GFR (Non-African American) 89.8; Potassium 3.8 mmol/L (3.5-5.1)
[2019-09-03] MEDS: ASPIRIN 81 MG ECTAB PO SCH (08:19)
[2019-09-03] MEDS: ATORVASTATIN 10 MG TAB PO SCH (08:19)
[2019-09-03] MEDS: BUDESONIDE 90 MCG INH INH SCH ×2 (08:20→20:40)
[2019-09-03] MEDS: ENOXAPARIN INJ 30 MG/0.3 ML SYR SQ SCH (08:22)
[2019-09-03] MEDS: ALBUT/IPRATROP 3MG/0.5MG NEB 3 ML VIAL NEB SCH ×4 (11:14→22:15)
--- NOTE | 2019-09-03 16:24 | Hospitalist Progress Note ---
Date of Service September 03, 2019 Assessment & Plan (1) Acute exacerbation of chronic obstructive airways disease: Continue Solumedrol 40mg Q6 hours Continue Rocephin and azithromycin duoneb qid (2) Bronchitis: (3) Hyperlipidemia: Continue atorvastatin (4) Paroxysmal atrial tachycardia: Continue Metoprolol 12.5mg BID. (5) Tobacco abuse: advised to quit smoking and discussed cessation strategies (6) DVT prophylaxis: Continue enoxaparin Supervising Physician Co-Signing Physician Notes I have reviewed the pt chart and discussed current care with Ms. Placido NP and agree with her assessment and plan of this pt. Subjective Ms. Montoya feels better than when she came in but still quite sob with any activity. Some cough with yellow/green sputum. ROS Constitutional: no chills, aches, sweats or fever Respiratory: see HPI Cardiac: no chest pain, palpitations, edema, orthopnea or lightheadedness GI: no abdominal pain, nausea, vomiting, diarrhea or constipation : no dysuria or hesitancy Extremities: no joint pain or weakness Skin: no rash All other systems reviewed and negative Physical Exam Physical Exam: General: no distress Eyes: normal inspection, PERLL Respiratory: chest non tender, expiratory wheezes bilaterally, no respiratory distress, no accessory muscle use Cardiac: regular rate and rhythm, no rub or gallop, no murmur, no edema, no jvd GI/: active bowel sounds, no abd pain or tenderness, soft, non distended Extremities: normal range of motion, normal strength, non tender Neuro/Psych: alert and oriented x 3, normal mood and affect Skin: normal color, dry Results & Data Vital Signs (Past 12 Hours) Vital Signs Temp Pulse Resp BP Pulse Ox 09/03/19 15:49 36.5 C 103 H 19 117/71 92 09/03/19 14:45 76 18 91 09/03/19 14:31 36.7 C 88 22 158/77 H 92 09/03/19 11:15 88 18 93 09/03/19 07:36 36.6 C 65 19 143/85 H 92 PG Care Time/CCT Total # of Minutes Spent Total Time Spent with Patient: Total time spent is greater than 50% in coordination of care (as documented) at patient's floor/unit and/or counseling patient:
[2019-09-04] MEDS: cefTRIAXone SODIUM 1,000 MG in DEXTROSE 5% 50 ML IV SCH (00:10)
[2019-09-04] MEDS: AZITHROMYCIN 500 MG in DEXTROSE 5% 250 ML IV SCH (01:06)
[2019-09-04] MEDS: ALBUT/IPRATROP 3MG/0.5MG NEB 3 ML VIAL NEB SCH ×7 (01:49→23:45)
[2019-09-04] MEDS: methylPREDNISolone 40 MG in SYRINGE 0 ML IV SCH ×4 (03:00→20:19)
[2019-09-04 06:29] LABS: Hematocrit (blood only) 39.7 % (37-47); Hemoglobin 13.1 g/dL (12.0-16.0); Mean Corpuscular Hemoglobin 31.5 pg (25-34); Mean Corpuscular Volume 95.4 fL (80-100); Mean Platelet Volume 10.1 fL (7.4-10.4); Platelet Count 236 K/uL (130-400); RDW Coefficient of Variation 13.6 % (11.5-14.5); RDW Standard Deviation 47.6 fL (36.4-46.3); Red Blood Count 4.16 M/uL (4.2-5.4); White Blood Count 16.81 K/uL (4.8-10.8)
[2019-09-04 07:04] LABS: BUN Creatinine Ratio 19.7 (10-20); Calcium 9.2 mg/dl (8.5-10.1); Creatinine Clr Calc Pharmacy 57.3 ml/min; Potassium 3.9 mmol/L (3.5-5.1)
[2019-09-04] MEDS: ATORVASTATIN 10 MG TAB PO SCH (08:20)
[2019-09-04] MEDS: ASPIRIN 81 MG ECTAB PO SCH (08:20)
[2019-09-04] MEDS: FAMOTIDINE 20 MG TAB PO SCH ×2 (08:20→20:19)
[2019-09-04] MEDS: METOPROLOL TARTRATE 25 MG TAB PO SCH ×2 (08:20→20:17)
[2019-09-04] MEDS: ENOXAPARIN INJ 30 MG/0.3 ML SYR SQ SCH (08:21)
[2019-09-04] MEDS: BUDESONIDE 90 MCG INH INH SCH (08:21)
[2019-09-04] MEDS ORDERED: SODIUM CHLORIDE 0.9% 250 ML IV ONE (15:15)
[2019-09-04] MEDS ORDERED: OPTIRAY 320 125ml IV PRN (15:20)
--- NOTE | 2019-09-04 15:36 | CT Scan Report ---
CT angio chest PE protocol CT DOSE: 211.42 mGycm HISTORY: 69 years-old Female with PE. Acute shortness of breath TECHNIQUE: Multiple CTA images of the chest were obtained after the intravenous administration of 102 ml Optiray 320. Coronal and sagittal MIPS were obtained from the axial data set and were submitted for review. All measurements were obtained according to NASCET criteria. A dose lowering technique w as utilized adhering to the principles of ALARA. COMPARISON: Chest radiograph 09/02/2019, CT abdomen and pelvis 04/05/2019 and 07/30/2015 FINDINGS: CTA: Mild cardiomegaly. Coronary arterial calcifications are noted. No pericardial effusion. No thoracic a ortic aneurysm or dissection. Moderate mixed plaque the thoracic aorta. Patency of the imaged great v essels. Tortuosity of the descending thoracic aorta. The segmental and subsegmental pulmonary arteria l branches are not well visualized within the lung bases secondary to respiratory motion artifact. No filling defects are identified to suggest pulmonary thromboembolic disease. Without CT CHEST: Heterogeneous thyroid. No adenopathy by CT size criteria. Moderate emphysema. Mild bilateral bronchia l wall thickening. No pneumothorax or pleural effusion. No overt pulmonary edema or focal airspace co nsolidation to suggest pneumonia. 4 mm solid nodule of the left lower lobe, image 145 series 4. 3 mm nodular opacity of the left lower lobe, image 74 series 4. Central airways appear patent. Mild nonspecific distal esophageal wall thickening. Unchanged appearance of the left greater than rig ht adrenal gland thickening/nodularity. This is likely benign based on stability. Soft tissues are un remarkable. Degenerative changes of the shoulders and spine. Demineralized appearance of the bones. N o acute fracture identified. IMPRESSION: 1. Mild cardiomegaly without acute aortic pathology or evidence of pulmonary thromboembolic disease. 2. Emphysema with bronchial wall thickening suggestive of reactive airway disease versus bronchitis. 3. No adenopathy, pleural effusion or airspace consolidation typical for pneumonia. 4. There are 2 solid nodules noted about the left lung measuring up to 4 mm. Follow-up guidelines pro vided below. 5. Nonspecific distal esophageal wall thickening. Please refer to below summary of Fleischner criteria recommendations for follow-up of incidental CT n odules (Alejandra Fairchild, Guidelines for management of small pulmonary nodules detected on CT scans: A sta tement from the Fleischner Society, Radiology 237: [phone].) SOLID NODULES Multiple nodules size: <6 mm * Low risk patients: no routine follow-up * high risk patients: optional CT at 12 months * Note: newly detected indeterminate nodule in persons 35 years of age or older. * Low risk patients: minimal or absent history of smoking and/or other known risk factors * high risk patients: history of smoking or of other known risk factors (e.g. first degree relative with lung cancer, or exposure to asbestos, radon, uranium) * if a nodule up to 8 mm is partly solid or is ground glass further follow-up is required after 24 m onths to exclude possible slow growing adenocarcinoma (RINKU) The above report was generated using voice recognition software. It may contain grammatical, syntax o r spelling errors. The above report was generated using voice recognition software. It may contain grammatical, syntax o r spelling errors. Electronically signed by: Jonathan Sanders M.D. 09/04/2019 3:35 PM
--- NOTE | 2019-09-04 16:58 | Hospitalist Progress Note ---
Date of Service September 04, 2019 Assessment & Plan (1) Acute exacerbation of chronic obstructive airways disease: Continue Solumedrol 40mg Q6 hours Discontinue Rocephin as no consolidation on imaging and continue azithromycin duoneb qid, will dc Pulmicort and start Symbicort CTA today without PE or consolidation (2) Bronchitis: As above (3) Hyperlipidemia: Continue atorvastatin Lipid panel am (4) Paroxysmal atrial tachycardia: Continue Metoprolol 12.5mg BID. (5) Tobacco abuse: advised to quit smoking and discussed cessation strategies (6) Pulmonary nodule: incidental finding on CTA Referral to pulmonary nodule program placed, will need follow up (7) Coronary artery calcification: Found incidentally on CTA Follow with pcp - may want to consider stress test or further cardiac work up especially with patient status as current smoker Continue ASA, atorvastatin Will check lipid panel (8) Esophageal thickening: As seen incidentally on CTA Famotidine bid Follow up with pcp for further workup/monitoring (9) DVT prophylaxis: Continue enoxaparin Subjective Ms. Montoya continues to be very dyspneic with difficulty maneuvering around the room without becoming quite sob. Cough, feels like her left chest is congested and she can't cough it up. She also has intermittent heartburn although not at the time of my assessment. ROS Constitutional: no chills, aches, sweats or fever Respiratory:see HPI Cardiac: no chest pain, palpitations, edema, orthopnea or lightheadedness GI: no abdominal pain, nausea, vomiting, diarrhea or constipation : no dysuria or hesitancy Extremities: no joint pain or weakness Skin: no rash All other systems reviewed and negative Physical Exam Physical Exam: General: no distress Eyes: normal inspection, PERLL Respiratory: chest non tender, bilateral expiratory wheezing, no respiratory distress, no accessory muscle use Cardiac: regular rate and rhythm, no rub or gallop, no murmur, no edema, no jvd GI/: active bowel sounds, no abd pain or tenderness, soft, non distended Extremities: normal range of motion, normal strength, non tender Neuro/Psych: alert and oriented x 3, normal mood and affect Skin: normal color, dry Results & Data Vital Signs (Past 12 Hours) Vital Signs Temp Pulse Resp BP Pulse Ox 09/04/19 15:35 88 20 91 09/04/19 15:33 36.7 C 80 18 111/76 90 09/04/19 11:37 105 H 16 91 09/04/19 11:06 36.8 C 81 17 117/56 L 91 09/04/19 08:31 36.6 C 100 H 18 121/66 94 09/04/19 07:35 71 18 97 09/04/19 05:14 36.8 C 107 H 24 147/88 H 95 PG Care Time/CCT Total # of Minutes Spent Total Time Spent with Patient: Total time spent is greater than 50% in coordination of care (as documented) at patient's floor/unit and/or counseling patient:
[2019-09-04] MEDS ORDERED: PANTOprazole 40 MG TAB PO ONE (16:59)
[2019-09-04] MEDS: LORazepam 0.5 MG/1 ML VIAL IV PRN (20:17)
[2019-09-04] MEDS: BUDESONIDE/FORMOTEROL FUMARATE 160/4.5 60 PUFFS/INHALER INH SCH (20:20)
[2019-09-05] MEDS: ALBUT/IPRATROP 3MG/0.5MG NEB 3 ML VIAL NEB SCH ×6 (03:09→23:24)
[2019-09-05] MEDS: methylPREDNISolone 40 MG in SYRINGE 0 ML IV SCH ×4 (03:23→20:38)
[2019-09-05 07:19] LABS: Chol HDL Ratio 2; Cholesterol 160 mg/dl (0-200); HDL Cholesterol 77 mg/dl; LDL Cholesterol Calculated 71 mg/dl; Triglycerides 59 mg/dl (0-150); VLDL Cholesterol 12 mg/dl
[2019-09-05] MEDS: ENOXAPARIN INJ 30 MG/0.3 ML SYR SQ SCH (08:20)
[2019-09-05] MEDS: METOPROLOL TARTRATE 25 MG TAB PO SCH ×2 (08:22→20:36)
[2019-09-05] MEDS: BUDESONIDE/FORMOTEROL FUMARATE 160/4.5 60 PUFFS/INHALER INH SCH ×2 (08:22→20:37)
[2019-09-05] MEDS: ASPIRIN 81 MG ECTAB PO SCH (08:22)
[2019-09-05] MEDS: ATORVASTATIN 10 MG TAB PO SCH (08:22)
[2019-09-05] MEDS: AZITHROMYCIN 250 MG TAB PO SCH (08:23)
[2019-09-05] MEDS: FAMOTIDINE 20 MG TAB PO SCH ×2 (08:23→20:36)
--- NOTE | 2019-09-05 15:39 | Hospitalist Progress Note ---
Date of Service September 05, 2019 Assessment & Plan (1) Acute exacerbation of chronic obstructive airways disease: Continue Solumedrol 40mg Q6 hours Discontinue Rocephin as no consolidation on imaging and continue azithromycin duoneb decreased to tid, dc'd Pulmicort and started Symbicort CTA without PE or consolidation (2) Bronchitis: As above (3) Hyperlipidemia: Continue atorvastatin Lipid panel wnl (4) Paroxysmal atrial tachycardia: Continue Metoprolol 12.5mg BID. (5) Tobacco abuse: advised to quit smoking and discussed cessation strategies (6) Pulmonary nodule: incidental finding on CTA Referral to pulmonary nodule program placed, will need follow up (7) Coronary artery calcification: Found incidentally on CTA Follow with pcp - may want to consider stress test or further cardiac work up especially with patient status as current smoker Continue ASA, atorvastatin lipid panel wnl (8) Esophageal thickening: As seen incidentally on CTA Famotidine bid Follow up with pcp for further workup/monitoring (9) DVT prophylaxis: Continue enoxaparin Subjective Ms. Montoya continues to be dyspneic with exertion. She also feels congested with cough, decreasing amount of sputum ROS Constitutional: no chills, aches, sweats or fever Respiratory: see HPI Cardiac: no chest pain, palpitations, edema, orthopnea or lightheadedness GI: no abdominal pain, nausea, vomiting, diarrhea or constipation : no dysuria or hesitancy Extremities: no joint pain or weakness Skin: no rash All other systems reviewed and negative Physical Exam Physical Exam: General: no distress Eyes: normal inspection, PERLL Respiratory: chest non tender, bilateral expiratory wheezes, no respiratory distress, no accessory muscle use Cardiac: regular rate and rhythm, no rub or gallop, no murmur, no edema, no jvd GI/: active bowel sounds, no abd pain or tenderness, soft, non distended Extremities: normal range of motion, normal strength, non tender Neuro/Psych: alert and oriented x 3, normal mood and affect Skin: normal color, dry Results & Data Vital Signs (Past 12 Hours) Vital Signs Temp Pulse Resp BP Pulse Ox 09/05/19 15:13 84 20 97 09/05/19 11:58 36.8 C 104 H 18 139/74 94 09/05/19 11:13 103 H 18 98 09/05/19 07:42 36.7 C 103 H 16 149/85 H 94 09/05/19 06:51 103 H 16 92 09/05/19 04:12 36.4 C L 74 20 109/71 94 PG Care Time/CCT Total # of Minutes Spent Total Time Spent with Patient: Total time spent is greater than 50% in coordination of care (as documented) at patient's floor/unit and/or counseling patient:
[2019-09-05] MEDS: guaiFENesin 600 MG TABCR PO SCH (20:36)
[2019-09-05] MEDS: LORazepam 0.5 MG/1 ML VIAL IV PRN (20:38)
[2019-09-06] MEDS: ALBUT/IPRATROP 3MG/0.5MG NEB 3 ML VIAL NEB SCH ×4 (03:00→15:20)
[2019-09-06] MEDS: METOPROLOL TARTRATE 25 MG TAB PO SCH (08:35)
[2019-09-06] MEDS: ATORVASTATIN 10 MG TAB PO SCH (08:35)
[2019-09-06] MEDS: BUDESONIDE/FORMOTEROL FUMARATE 160/4.5 60 PUFFS/INHALER INH SCH (08:35)
[2019-09-06] MEDS: guaiFENesin 600 MG TABCR PO SCH (08:36)
[2019-09-06] MEDS: FAMOTIDINE 20 MG TAB PO SCH (08:36)
[2019-09-06] MEDS: ASPIRIN 81 MG ECTAB PO SCH (08:36)
[2019-09-06] MEDS: ENOXAPARIN INJ 30 MG/0.3 ML SYR SQ SCH (08:36)
[2019-09-06] MEDS: methylPREDNISolone 40 MG in SYRINGE 0 ML IV SCH ×2 (08:36→13:58)
[2019-09-06] MEDS: AZITHROMYCIN 250 MG TAB PO SCH (08:36)
--- NOTE | 2019-09-06 14:44 | Discharge Summary ---
Date of Service September 06, 2019 Admission HPI Per Admitting Provider 69 year old female presented to the ED with SOB that has been for a few days, but became worse this afternoon. reports that patient had been around "furry animals" the previous day which he feels caused this exacerbation. She feels that she had "cold symptoms" including runny nose, dry cough. No F/C, chest pain, N/V/D. She has known COPD, but has never been intubated due to COPD. She does not follow with pulmonology. Principal Diagnosis COPD exacerbation Discharge Exam Constitutional WD/WN, vitals as above Respiratory normal respiratory effort, lungs clear to auscultation Cardiovascular RRR, no murmur, no edema Gastrointestinal (Abdomen) Inspection/Auscultation: abdomen normal to inspection and normal bowel sounds; abdomen not distended Percussion/Palpation: abdomen soft; abdomen nontender and no guarding Musculoskeletal no cyanosis or clubbing, extremities motor strength 5/5 Skin no rashes, warm and dry Neurologic moves all extremities and awake Psychiatric A+Ox3, euthymic affect Discharge Data Allergies Allergy/AdvReac Type Severity Reaction Status Date / Time Sulfa (Sulfonamide Allergy Severe "BLOOD Verified 09/02/19 17:20 Antibiotics) POISONING" Penicillins Allergy Unknown HAPPENED Verified 09/02/19 17:20 A CHILD Consultations 09/02/19 21:03 ED Decision to Admit Stat 09/04/19 16:39 Consult Lung Nodule Program Routine Ordered Studies 09/04/19 10:29 CT angio chest PE protocol Routine Hospital Course (1) Acute exacerbation of chronic obstructive airways disease: Provided IV Solumedrol - will discharge with prednisone taper Discontinue Rocephin as no consolidation on imaging and continued azithromycin for a total of 5 days duoneb provided, dc'd Pulmicort and started Symbicort which patient feels is helping CTA without PE or consolidation Patient's lung sounds much improved today - no audible wheezing, cough has improved, feels ready to go home 2 step with need for ambulatory O2 which patient will go home with - did commercial counsel on the dangers of smoking with supplemental O2 (2) Bronchitis: As above (3) Hyperlipidemia: Continue atorvastatin Lipid panel wnl (4) Paroxysmal atrial tachycardia: Continue Metoprolol 12.5mg BID. (5) Tobacco abuse: advised to quit smoking and discussed cessation strategies (6) Pulmonary nodule: incidental finding on CTA Referral to pulmonary nodule program placed, will need follow up (7) Coronary artery calcification: Found incidentally on CTA Follow with pcp - may want to consider stress test or further cardiac work up especially with patient status as current smoker Continue ASA, atorvastatin lipid panel wnl (8) Esophageal thickening: As seen incidentally on CTA Famotidine bid Follow up with pcp for further workup/monitoring (9) DVT prophylaxis: enoxaparin inpatient Total Time Total Time Spent Total Time Spent (In Minutes): greater than 30 minutes Discharge Plan Discharge Items Patient Disposition: Home - Self-Care Reason For Visit: COPD EXACERBATION Discharge Diagnosis: COPD exacerbation Condition on Discharge: Good Activity: Resume your previous activity Activity Comment: gradually as tolerated Non-emergency contact: Primary Care Provider Call non-emergency contact if: you have any medication questions and your symptoms worsen Follow-up/Referrals: Tiffany Herrera PA-C [Physician Glazing Machine Operator] - 09/11/19 9:45 am (Please, follow up at [facility] Pulmonology Office with Tiffany Herrera PA-C on TuesdaySeptember 11 at 10:00 am (arrive 9:45 am). *The office is located in [address] of [facility] [place][Note 2], next to this [place] [facility]. If you need to change this appointment, call the office at [phone].) Gurjit Parada MD [Primary Care Provider] - 09/07/19 2:30 pm (Please, follow up with Dr. Marshall Peraza on TuesdaySeptember 07 at 2:30 pm. *If you need to change this appointment, call the office at [phone].) Diet: Regular Addtl Attending Provider Instructions: 1) Acute exacerbation of chronic obstructive airways disease: Your CT angiogram of your chest did not show any blood clots or signs of pneumonia - You will discharge on a steroid taper as follows 40 mg x 3 days 20 mg x 3 days 10 mg x 3 days - Today the 5th of 5 doses of azithromycin so you will not need to take any further antibiotics for home - continue Symbicort - continue guaifenesin (Mucinex) as needed. This can be purchased over the counter - You will go home with supplemental oxygen - as we discussed earlier, oxygen is highly flammable and may cause a fire or explosion if you were to smoke around the oxygen. I encourage you to continue to abstain from cigarettes for your health as well. 2)Hyperlipidemia: - Continue atorvastatin Your Lipid panel was within normal limits 3) Paroxysmal atrial tachycardia: - Continue Metoprolol 12.5mg BID. 4) Pulmonary nodule: incidental finding on CT angiogram of the chest - a referral was placed to the pulmonary nodule program - follow up with your primary care provider for further monitoring 5) Esophageal thickening: As seen incidentally on CT angiogram - Continue Famotidine bid which you can purchase over the counter - Follow up with your primary care provider for further workup/monitoring Pending Studies at Discharge: No Stand-Alone Forms: [facility] [employer], Smoking Cessation Medications and DC Order Prescriptions: New famotidine 20 mg Tablet 20 mg PO BID Qty: 60 RF: 0 guaifenesin [Mucinex] 600 mg Tablet Extended Release 12hr 1,200 mg PO Q12 Qty: 14 RF: 0 Symbicort 160-4.5 mcg/actuation HFA aerosol inhaler 2 puffs INH BID Qty: 6 RF: 0 prednisone 10 mg tablet 10 mg PO DAILY Qty: 21 RF: 0 Continued atorvastatin 10 mg tablet 10 mg PO DAILY RF: 0 aspirin [Aspir-81] 81 mg Tablet,Delayed Release (Dr/Ec) 81 mg PO DAILY RF: 0 albuterol sulfate [Ventolin HFA] 90 mcg/actuation HFA aerosol inhaler 2 puff inhalation Q4 PRN (Reason: Shortness Of Breath Or Wheezing) RF: 0 metoprolol tartrate 25 mg tablet 12.5 mg PO BID RF: 0 Discontinued Pulmicort Flexhaler 90 mcg/actuation aerosol powdr breath activated 1 inh inhalation BID RF: 0 Discharge Orders: Discharge Order (Routine); Ordered 09/06/19 Ordered By: Renata Cummins Admission Data Admit Date/Time: 09/02/19 21:37 Attending Provider: Han Hardin Admit Provider: Maverick Peterson Primary Care Provider: Gurjit Parada Other Providers: Maverick Peterson Supervising Physician Co-Signing Physician Notes I supervised Renata Cmumins NP on this patient's care. I examined the patient today independently of her. I discussed the plan of care with her with the plan being as written in her note except for any following changes/exceptions: None. Reports she is feeling better than any prior day in the hospital and even better than the last while. Ready for discharge.
== END 2019-09-06 16:25 | disposition home or self-care (01) | DRG 191 ==
LOC: ED 16:18 → SUATTDRO 21:37 → 2S 21:37

== ENCOUNTER 2022-01-12 06:10 | Inpatient (IN) ==
--- NOTE | 2022-01-06 16:04 | PAT Medication Instructions ---
Medication Instructions Date of Service January 06, 2022 Home Medications Medication Instructions Recorded budesonide-formoterol HFA 160 2 puffs INH BID #6 gm 09/06/19 mcg-4.5 mcg/actuation aerosol inhaler (Symbicort) famotidine 20 mg tablet 20 mg PO BID #60 tab 09/06/19 walker #1 ea 02/27/20 albuterol sulfate 90 mcg/actuation aerosol inhaler (Ventolin HFA) 2 puff INHALATION Q4 PRN aspirin 81 mg tablet,delayed release (Aspir-) 81 mg PO QPM atorvastatin 10 mg tablet 10 mg PO QAM metoprolol tartrate 25 mg tablet 12.5 mg PO BID budesonide-formoterol HFA 160 mcg-4.5 mcg/actuation aerosol inhaler (Symbicort) 2 puffs INH BID famotidine 20 mg tablet 20 mg PO BID furosemide 20 mg tablet 20 mg PO QAM potassium chloride 10 mEq capsule,extended release 10 meq PO QAM ASK your prescriber and surgeon aspirin 81 mg tablet,delayed release (Aspir-) 81 mg PO QPM DO NOT take the morning of surgery furosemide 20 mg tablet 20 mg PO QAM potassium chloride 10 mEq capsule,extended release 10 meq PO QAM Take morning of surgery With a small sip of water, OTHERWISE NOTHING TO EAT OR DRINK AFTER MIDNIGHT: albuterol sulfate 90 mcg/actuation aerosol inhaler (Ventolin HFA) 2 puff INHALATION Q4 PRN (use if needed; please bring rescue inhaler with you to hospital day of surgery if possible) atorvastatin 10 mg tablet 10 mg PO QAM metoprolol tartrate 25 mg tablet 12.5 mg PO BID budesonide-formoterol HFA 160 mcg-4.5 mcg/actuation aerosol inhaler (Symbicort) 2 puffs INH BID famotidine 20 mg tablet 20 mg PO BID Take evening before surgery albuterol sulfate 90 mcg/actuation aerosol inhaler (Ventolin HFA) 2 puff INHALATION Q4 PRN (if needed) metoprolol tartrate 25 mg tablet 12.5 mg PO BID budesonide-formoterol HFA 160 mcg-4.5 mcg/actuation aerosol inhaler (Symbicort) 2 puffs INH BID famotidine 20 mg tablet 20 mg PO BID Other Notes If you have any questions please call us at [phone] or [phone] or [phone] or [phone]
--- NOTE | 2022-01-08 10:34 | Anesthesiology Consultation ---
Date of Service January 08, 2022 Assessment & Plan (1) Encounter for pre-operative examination: - history of anesthesia issue: < 5 yrs ago during colonoscopy, woke during procedure and was told by provider "sorry but we can't administer more anesthetic or your blood pressure will bottom out." She denies additional episodes of awareness during anesthesia. Anesthesia record and post-op progress note are in external application system for review, to my review-no notation on awareness during procedure. - pulmonology office visit 08/18/2021 [place]: "...follow-up on her tobacco abuse and COPD...is using Symbicort and feels it is beneficial. She never filled the long- acting anticholinergic. She is coughing and producing some clear phlegm...albuterol inhaler to use on an as-needed basis but she states that she avoids using this regularly because it makes her jittery and causes palpitations...has not noted any wheezing...does feel short of breath...denies fevers chills or night sweats. Her appetite is good and her weight is stable. Unfortunately patient has resumed her tobacco habit. She is smoking about 1/2 pack/day. She uses oxygen at night...COPD: Continue Symbicort. We will place the patient on a trial of Spiriva to see if this offers her benefit. She can continue to use the rescue albuterol as needed...Hypoxemia: Continue oxygen at night...Pulmonary nodule: Nodules been stable dating back over 2 years...will be scheduled for a follow-up low-dose CT scan in 1 years time..." - Case discussed in detail with Dr. Wheat including cardiac history, medications, anesthesia history and pre-op EKG and he advised from his standpoin t patient is acceptable risk to proceed with surgery and nothing additional is needed prior to surgery. - COVID screening: Per assessment on 01/08/2022: Travel screen negative, no known COVID-19 positive contacts or current COVID-19 related symptoms in past 2 weeks. Patient vaccinated. Pre-op COVID test obtained at appt today. Chart Review Chart Review: Acceptable Risk for Surgery and Patient seen in Pre Admission Testing Teaching & Discussion Pre-Anesthesia Teaching/Discussion Notes: Instructed NPO after midnight before surgery, except medications with 15 cc of water. Medication instructions provided according to the PAT guidelines. History Surgery Operation Date: 01/12/22 08:05 Proposed Procedures p Left Common Femoral Artery Endarterectomy w/ Patch - Dennis Gonzalez MD s Angiogram w/ Stenting, Right Iliac Artery - Dennis Gonzalez MD Height/Weight Height: 5 ft 1 in Weight: 49.895 kg Allergies Allergy/AdvReac Type Severity Reaction Status Date / Time Sulfa (Sulfonamide Allergy Severe "BLOOD Verified 01/06/22 09:53 Antibiotics) POISONING" Penicillins Allergy Unknown HAPPENED Verified 01/06/22 09:53 A CHILD tiotropium AdvReac Severe sore Verified 01/06/22 09:53 [From Spiriva with throat and HandiHaler] heart races Medications Home Medications Medication Instructions Recorded Confirmed Last Taken albuterol sulfate 90 mcg/actuation 2 puff INHALATION Q4 PRN 09/02/19 01/06/22 Unknown aerosol inhaler (Ventolin HFA) aspirin 81 mg tablet,delayed 81 mg PO QPM 09/02/19 01/06/22 12/17/21 20:00 release (Aspir-) atorvastatin 10 mg tablet 10 mg PO QAM 09/02/19 01/06/22 12/17/21 20:00 metoprolol tartrate 25 mg tablet 12.5 mg PO BID 09/02/19 01/06/22 12/18/21 05:00 budesonide-formoterol HFA 160 2 puffs INH BID #6 gm 09/06/19 01/06/22 12/17/21 20:00 mcg-4.5 mcg/actuation aerosol inhaler (Symbicort) famotidine 20 mg tablet 20 mg PO BID #60 tab 09/06/19 01/06/22 12/17/21 20:00 walker #1 ea 02/27/20 08/18/21 Unknown furosemide 20 mg tablet 20 mg PO QAM 12/18/21 01/06/22 12/17/21 08:00 potassium chloride 10 mEq 10 meq PO QAM 12/18/21 01/06/22 12/17/21 08:00 capsule,extended release Past Medical History Medical History Atrial fibrillation pt reports history of atrial fibrillation; no special programs director. PCP manages per pt. intermittent palpitations, chronic without change or worsening. COPD (chronic obstructive pulmonary disease) controlled, stable per pt, last rescue inhaler use several yrs ago Coronary artery calcification Dependence on nocturnal oxygen therapy 2 LPM qHS GERD (gastroesophageal reflux disease) controlled, stable per pt Hearing loss History of anesthesia reaction < 5 yrs ago, limitation on anesthetic administration due to hypotension per pt per provider, woke up during colonoscopy Iliac artery stenosis, bilateral With stent placement. Paroxysmal supraventricular tachycardia Peripheral arterial disease Pulmonary nodule [place] Pulmonology monitoring Sleep apnea on supplemental oxygen 2L HS Smoker Patient denies h/o stroke, seizures, heart attack, heart failure, DM, HTN, blood clots or blood transfusions. - Patient was last seen in PCP office 09/2021, note not dictated per office. Per discussion with Dr. Wheat patient is acceptable to proceed at this time. Exercise / Class Metabolic Activity II 4-5 Yardwork/Stairs/Walk up hill (denies CP or SOB with 1 FOS) Past Family History Family History Father , age 61 yr Myocardial infarction Mother , In 70's Colorectal cancer Past Surgical History Surgical History History of appendectomy History of colonoscopy History of tonsillectomy History of vascular surgery 12/18/21 [facility] - Left Lower Extremity Arteriogram, Ultrasound Localization of Right Femoral Artery, Mechanical Closure of Right Femoral Artery S/P insertion of iliac artery stent S/P NICKIE-BSO Past Anesthesia History No Family Hx of Anesthesia Complications and Other (see above ) History of PONV No Hx of PONV and Hx of Motion Sickness Social History Smoking Status: Current every day smoker tobacco type: cigarettes Smoking cigarettes per day: 5-10 Do You Dip or Chew Tobacco: No Hx Alcohol Use: No Hx Substance Use: No substance use type: does not use Review of Systems Patient denies chest pain, shortness of breath, dyspnea on exertion, fever, chills, cough, or wheezing. Physical Exam Vital Signs Vitals BP 111/74 P 49 (chronic per pt on metoprolol) TEMP 98.1 SP02 97% on RA RESP 17 Physical Full cervical extension range of motion without pain Full TMJ range of motion TMD 3.5 finger breaths Mallampati Score 3 Dentition: intact, full upper denture and partial lower; 3 chipped teeth lower front; denies loose teeth, caps/crowns or implants Lungs: normal respiratory effort. Clear throughout to auscultation, no adve ntitious breath sounds Cardiac: regular rate and rhythm, no murmurs noted Carotid arteries: negative bruit bilat Extremities: no distal extremity edema Lab Results Anesthesia Preop Results Results Anesthesia Widget: WBC 7.70 K/uL (4.8-10.8) 01/08/22 Hgb 14.2 g/dL (12.0-16.0) 01/08/22 Hct 42.2 % (37-47) 01/08/22 Plt 277 K/uL (130-400) 01/08/22 Na 140 mmol/L (136-145) 01/08/22 K 3.8 mmol/L (3.5-5.1) 01/08/22 Cl 104 mmol/L (98-107) 01/08/22 CO2 32 mmol/L (21-32) 01/08/22 BUN 13 mg/dl (6-23) 01/08/22 Creat 0.65 mg/dl (0.6-1.2) 01/08/22 Glucose Level 69 mg/dl (70-99(Fasting)) L 01/08/22 PT 10.1 Seconds (9.0-12.0) 01/08/22 PTT 27.9 Seconds (21.0-31.0) 01/08/22 INR 0.9 (0.9-1.1) 01/08/22 Blood Type A Positive 01/08/22 Antibody Screen NEGATIVE 01/08/22 Testing Electrocardiogram Date: 01/08/22 Sinus bradycardia, rate 47 bpm T wave abnormality, consider anterior ischemia Chest X-Ray Date: 01/08/22 FINDINGS: No lines and tubes are seen. The cardiomediastinal silhouette is normal. The lungs are clear. No evidence of pleural effusion or pneumothorax. Degenerative changes are seen in the spine. IMPRESSION: No acute chest disease. Other Testing Aorta w/ runoff CTA 11/26/2021 FINDINGS: Lower chest: The heart is mildly enlarged and without pericardial effusion. The coronary arteries are densely calcified. Emphysematous change is suspected. There is mild bibasilar scarring/atelectasis. No airspace consolidation or pleural effusion is identified. Pancreas: Moderately atrophic and grossly unremarkable. Adrenal glands: Bilateral adrenal adenomas measuring up to 2 cm are unchanged. Kidneys: The contrast since kidneys demonstrate cortical atrophy and are without hydronephrosis. No renal calculi are seen on the unenhanced series. The kidneys enhance symmetrically. Abdominal aorta and iliac arteries: There is advanced atherosclerotic calcification and ectasia of the abdominal aorta. A thrombosed saccular aneurysm of the infrarenal abdominal aorta eccentric to the is seen on image #97. The abdominal aorta is widely patent. No dissection is seen. There is advanced atherosclerotic plaque involving the iliac arteries. Bilateral common iliac artery stents are widely patent. The internal and external iliac arteries are patent bilaterally noting advanced atherosclerotic plaque and irregularity. The external iliac arteries are diminutive. There is mild focal stenosis of the right external iliac artery seen on image #231 and mild focal stenosis of the left external iliac artery seen on image #266. Major branches of the abdominal aorta: The superior mesenteric artery is widely patent. The origin of the celiac trunk is patent. There is focal narrowing and angulation of the celiac artery approximately 1.4 cm from the aorta seen on image #61. There is mild poststenotic dilatation of the vessel which measures up to 7 mm. This can be seen with median arcuate ligament syndrome. There is mild stenosis the origin of the inferior mesenteric artery. Hepatic arterial anatomy is conventional. The splenic artery is patent. There is at least mild stenosis at the origin of the left renal artery. The renal arteries are otherwise patent bilaterally. A tiny accessory right renal artery arises just below the diaphragmatic hiatus on image #66. Right lower extremity runoff: Advanced atherosclerotic plaque and irregularity seen throughout the arteries of the right lower extremity. There is mild focal stenosis of the right common femoral artery seen on image #299. The right profunda femoris artery patent. There is mild focal stenosis of the mid superficial femoral artery seen on image #466. The superficial femoral and popliteal arteries are otherwise widely patent. There is two-vessel runoff to the foot. The calf arteries are diminutive. The anterior tibial and peroneal arteries are patent to the ankle. The dorsalis pedis artery is patent. The left posterior tibial artery is diminutive as seen on image #768, and the peroneal artery branches just above the ankle joint with a large vessel coursing medially. This may represent variant anatomy. Left lower extremity runoff: Advanced atherosclerotic plaque and irregularity seen throughout the arteries of the left lower extremity. The common femoral artery is patent, as is the profunda femoris artery. Advanced atherosclerotic plaque and irregularity seen throughout the superficial femoral and popliteal arteries. Mild focal stenosis is seen in the mid superficial femoral artery image #532. The superficial femoral and popliteal arteries are otherwise widely patent. The calf arteries are diminutive. There is three-vessel runoff to the foot. The dorsalis pedis artery is patent. Bowel: There is no bowel obstruction. Mild to moderate fecal retention is seen throughout the colon. The appendix is not identified and reported surgically absent Skeletal structures: The skeletal structures are osteopenic. No lytic or blastic lesions are seen. There is mild lumbosacral spondylosis. Tarlov cysts are noted in the sacrum. Lower extremity soft tissues: Lower extremity soft tissues are normal as visualized. IMPRESSION: 1. There is a 3 cm thrombosed saccular aneurysm along the right aspect of the infrarenal abdominal aorta. 2. The abdominal aorta is patent, as are bilateral common iliac artery stents. 3. There are foci of mild focal stenosis within the both external iliac arteries, the right common femoral artery, and both superficial femoral arteries. 4. Advanced peripheral vascular disease with diminutive calf arteries. 5. There is three-vessel runoff to the left foot. 6. There is two-vessel runoff to the right foot. The posterior tibial artery is diminutive, and there is a large inferior branch of the peroneal artery above the ankle joint which supplies the medial aspect of foot. This may represent variant anatomy. 7. No focal vessel occlusion is identified in either leg. 8. Question median arcuate ligament syndrome. Clinical correlation be required. 9. There is mild stenosis at the origin of the left renal artery as well as the inferior mesenteric artery. 10. Additional findings as above. Chest CT 08/10/2021 FINDINGS: Thoracic aorta: There is atherosclerotic calcification of the thoracic aorta. There is mild ectasia of the ascending thoracic aorta which measures up to 3.7 cm in diameter. The remainder of the thoracic aorta is normal in caliber, and the arch demonstrates standard 3-vessel anatomy. Heart: The heart is normal in size and without pericardial effusion. The oconnor ry arteries are densely calcified. Lungs and pleural spaces: Evaluation of the lung parenchyma is modestly degraded by motion artifact. Emphysematous change is similar to previous. There is no airspace consolidation typical for pneumonia or pleural effusion. The trachea and central airways are clear. Mild scarring/atelectasis is noted at the lung bases. There are scattered calcified granulomas. A 5 mm left lower lobe pulmonary nodule seen on image #133 and a 6 mm right upper lobe pulmonary nodule seen on image #99 are unchanged dating back to 09/04/2019. No new or enlarging pulmonary lesion is seen. Upper abdomen: There is a tiny hiatal hernia. Bilateral adrenal adenomas are unchanged. Partially visualized upper abdominal viscera is otherwise within normal limits. Skeletal structures: The skeletal structures are osteopenic. Degenerative change and hyperkyphosis are noted in the thoracic spine. No lytic or blastic bony lesions are seen. IMPRESSION: 1. Emphysema. 2. There are least 2 pulmonary nodules measuring up to 6 mm. These have not appreciably changed as compared to 09/04/2019. 3. No new or enlarging pulmonary nodule is identified. 4. There is no airspace consolidation or pleural effusion. 5. Additional findings as above. Carotid doppler 08/09/2016 Complex calcified plaque in the bilateral bulb and ICA Less than 50% stenosis bilat
[~2022-01-12 06:10] MED LIST changes: -ASPI81TA28 PO; -ATOR10TA82 PO; +CLINDAMYCIN 600 MG/54 ML BAG IV SCH; -LPR25 PO; +SODIUM CHLORIDE 0.9% 1000ML IV SCH; -SYMIN PO; -VNTHFA/IN INH
[2022-01-12] MEDS ORDERED: ALBUMIN HUMAN 5% 12.5 GM/250 ML VIAL IV ONE (06:49)
[2022-01-12] MEDS ORDERED: SUGAMMADEX SODIUM 200 MG/2 ML VIAL IV ONE (06:49)
[2022-01-12] MEDS ORDERED: HEPARIN (PORCINE) 1000 UNIT/ML 10 ML (CATH LAB USE ONLY) ONE (07:12)
[2022-01-12] MEDS ORDERED: BUPIVACAINE 0.5 % 5 MG/1 ML MPF 30ML VIAL ONE (07:13)
[2022-01-12] MEDS ORDERED: LIDOCAINE 1% LOCAL 20 ML VIAL ONE (07:13)
[2022-01-12] MEDS ORDERED: ceFAZolin 330 MG/ML 1 GM VIAL ONE (07:13)
[2022-01-12] MEDS ORDERED: THROMBIN 5000 UNITS KIT ONE (07:13)
[2022-01-12] MEDS ORDERED: EPINEPHrine INJ 1 MG/ML AMP ONE (07:13)
[2022-01-12] MEDS ORDERED: PAPAVERINE HCL INJ 30 MG/ML 2 ML VIAL ONE (07:13)
[2022-01-12] MEDS ORDERED: GELATIN SPONGE SZ 100 ONE (07:13)
[2022-01-12] MEDS ORDERED: fentaNYL citrate 100 MCG/2 ML VIAL ONE (07:23)
[2022-01-12] MEDS ORDERED: MIDAZOLAM HCL 1 MG/ML 2ML VIAL ONE (07:23)
--- NOTE | 2022-01-12 07:45 | History & Physical Report ---
Date of Service January 12, 2022 History of Present Illness Primary Care Provider: [id number] Allergy/Adv: Sulfa (Sulfonamide Antibiotics), Penicillins, tiotropium (More) Close Sign Electrocardiogram (Signed) AriadnaJt sanchez - 01/08/22 11:02 Anesthesiology Consultation (Signed) Dulce Maria Morenita (+) - 01/08/22 10:24 Pre-Admission Report (Signed) Naomi Jacobson (+) - 01/06/22 16:03 Surgery Discharge Packet (Viewable) 12/18/21 10:04 Procedure Notes (Signed) Dennis Gonzalez - 12/18/21 09:45 Post-Anesthetic Evaluation (Signed) Dennis Gonzalez - 12/18/21 09:45 Endovascular Summary Report (Scanned) 12/18/21 09:43 Pre-Anesthetic Evaluation (Signed) Dennis Gonzalez - 12/18/21 08:29 History & Physical (Signed) Dennis Gonzalez - 12/18/21 08:28 Sponge Needle Count Sheet (Scanned) 12/18/21 00:00 Electrocardiogram (Signed) Yung Thornton - 09/24/21 19:29 Pulmonary Visit (Signed) Loc Muller - 08/18/21 09:43 Electrocardiogram (Scanned) 09/30/20 00:00 Family Practice Note (Scanned) 09/02/20 00:00 Orthopedics Visit (Signed) Kory Staton - 03/27/20 10:31 Orthopedics Visit (Signed) Kory Staton - 02/27/20 13:02 ED Discharge Packet (Viewable) 02/27/20 05:42 Emergency Room Visit Notes (Signed) Ritesh Hay - 02/27/20 03:05 Pulmonary Visit (Signed) Loc Muller - 09/11/19 10:04 Discharge Packet (Viewable) 09/06/19 16:27 Discharge Summary (Signed) Renata Cummins (+) - 09/06/19 14:44 Hospitalist Progress Note (Signed) Renata Cummins (+) - 09/05/19 15:38 Hospitalist Progress Note (Signed) Renata Cummins (+) - 09/04/19 16:58 Hospitalist Progress Note (Signed) Renata Cummins (+) - 09/03/19 16:18 History & Physical (Signed) NicholasMaverick bowman - 09/02/19 22:00 Electrocardiogram 09/02/19 16:47 Emergency Room Visit Notes (Signed) Susy Garduno - 09/02/19 16:38 External Medical Summary Report (Signed) [employer] - 04/03/19 11:31 Outside Patient Information (Scanned) 09/02/17 21:49 Discharge Instructions (Scanned) 09/02/17 11:35 Procedure Note (Scanned) 09/02/17 09:26 Endovascular Summary Report (Scanned) 09/02/17 09:26 Operative Report (Scanned) 09/02/17 09:25 Procedure Note (Scanned) 09/02/17 07:36 History and Physical Bridge Note (Scanned) 09/02/17 07:36 History and Physical (Scanned) 09/02/17 06:23 Discharge Summary (Scanned) 08/13/17 20:02 Progress Note (Scanned) 08/04/17 17:49 Discharge Instructions (Scanned) 08/04/17 08:04 Progress Note (Scanned) 08/03/17 21:36 History and Physical (Scanned) 08/02/17 20:23 Emergency Room Visit Notes (Scanned) 08/02/17 03:12 MEDICAL ALERT (Scanned) 04/24/15 15:14 MEDICAL ALERT (Scanned) 04/24/15 15:14 MEDICAL ALERT (Scanned) 04/24/15 15:14 [id number] History & Physical Report Signed with Yari Patient:RETA ZAVALA I Admit Date:12/18/21 MR#:[id number] Att Phy:Dennis Gonzalez M.D. Acct ID:[id number] Yadi Phy:Gurjit Healy M.D. Date:1950 Fam Phy: Age:71 Location:U Sex:F Room/Bed: cc: ~ *NOTICE TO RECEIVING LIBERTARIAN/AGENCY This information is strictly Confidential and protected under [place] law. [place] law prohibits you from making any further disclosure of this information unless further disclosure is expressly permitted by the written consent of the person to whom it pertains or is authorized by law. A general authorization for the release of medical or other information is not sufficient for this purpose. Hospital accepts no responsibility if the information is made available to any other person, INCLUDING THE PATIENT. ADDENDUM 12/18/21829Addendum December 18, 2021 08:30 Revoew of systems is neg except for HPI Addendum Signed By: <Electronically signed by Dennis Gonzalez MD> 12/18/21829 Addendum Cosigned By: Created: 12/18/21 Date of Service December 18, 2021 History of Present Illness Primary Care Provider: Gurjit Parada MD Name: RETA ZAVALA I Patient Number: [id number] : 1950 Date of Service: 12/09/2021 Chief Complaint: _Follow-up after CTA HPI: _Ms. Zavala is a middle-aged female who presents to Dr. Gonzalez's vascular surgery clinic today regarding claudication and aortoiliac occlusive disease. Patient has undergone bilateral common iliac stenting in the past, and presented for routine follow-up about a month ago. She was complaining of some left leg claudication symptoms, and an ultrasound was performed. This was inconclusive regarding proximal disease and she was sent for CTA for further evaluation. Austin gamble states that after walking just a few minutes, her left leg becomes very heavy and tired. She states that the symptoms are similar to what she was experiencing prior to her bilateral iliac artery stenting a few years ago. It is not quite as severe. After resting a few minutes she is able to ambulate a similar distance. Her CTA demonstrates a severe stenosis of her external iliac artery on the left side. Current Home Meds: (Last Updated 12/09 09:49) albuterol (albuterol CFC free 90 mcg/inh MDI) 2 puff inhaled qid PRN: as needed for wheezing aspirin (Aspir-Low 81 mg oral delayed release tablet) 81 mg PO Daily atorvastatin (atorvastatin 10 mg oral tablet) 10 mg PO qhs budesonide-formoterol (Symbicort 80 mcg-4.5 mcg/inh inhalation aerosol) 2 puff inhaled bid famotidine (Pepcid 20 mg oral tablet) 20 mg PO Daily furosemide (furosemide 20 mg oral tablet) 20 mg PO Daily metoprolol (Metoprolol Tartrate 25 mg oral tablet) 1.5 tab PO bid potassium chloride (Potassium Chloride (Eqv-K-Tab) 10 mEq oral tablet, extended release) 10 mEq PO Daily Allergies and Sensitivities: penicillins(unknown - reaction as a child) sulfa drugs(blood poisioning) Past Medical History: Problems: Occlusion of common femoral artery AAA (abdominal aortic aneurysm) Carotid stenosis Atherosclerosis Weight disorder Tobacco abuse Iliac artery stenosis Venous stenosis OBJECTIVE Vitals: Last Updated 12/09/21 10:02 Date Temp BP Location Pulse RR SpO2 Pain 12/09/21 0 12/09/21 106/62 Left Arm 64 96 11/19/21 136/84 Right Arm 51 96 Vital Signs are the last 3 documented. No Orthostatic Data Available Height and Weight: Last Updated 10/08/21 09:54 Date BMI Wt(kg) Wt(lb) Method Ht(cm) (ft-in) Method 10/08/21 50.4 111 Standing Scale 10/04/19 20.58 49.4 109 Standing Scale 154.94 5-1 10/02/18 48.53 107 Patient stated 154.94 5-1 Heights and Weights are the last 3 documented. Physical Exam _ Constitutional: In general patient is a healthy-appearing well-nourished well- developed middle-aged female no distress. Her abdomen is soft nontender with normoactive bowel sounds. Lungs are clear. Heart has a regular rate and rythm. Her femoral pulses are nonpalpable on the left +2 on the right. Her distal pulses are nonpalpable. ASSESSMENT: _ PLAN: _ 1 ) _iliac artery stenosis This patient appears to have severe stenosis of her left external iliac artery and has symptoms of claudication left leg. After discussion with Dr. Gonzalez, he recommends the patient undergo an aortogram with left iliac artery stenting. The procedure risks benefits and alternatives were discussed with the patient by Dr. Gonzalez. She expresses understanding and agreement to proceed. This will occur in the next few weeks at the patient's convenience. She is advised to call here with any questions or concerns. Thank you for letting us participate in the care of this patient. Signature Line Electronic Signature on File Electronically Reviewed/Signed by: Jonelle Graff PA-C Author Signature Dt/Tm:12/09/2021 10:58 AM [facility] [address], [address] [place] [address] Electronically Reviewed/Signed by: Dennis Gonzalez MD Cosigner Signature Dt/Tm: 12/10/2021 08:54 AM Manager Mac [facility] [address], [address] [place] [address] LM Result Type: HVI Outpt Note Date of Service: December 09, 2021 10:55 EST Authorization Status: Final Author or Import Date: DONTAE Graff, Jonelle on December 09, 2021 10:58 EST Verified By: MD Carlos, Dennis Lopez on December 10, 2021 08:54 EST Encounter info: [id number], [facility] [id number], Clinic, 12/09/2021 - 12/09/2021 Allergies Allergy/AdvReac Type Severity Reaction Status Date / Time Sulfa (Sulfonamide Allergy Severe "BLOOD Verified 12/18/21 06:40 Antibiotics) POISONING" Penicillins Allergy Unknown HAPPENED Verified 12/18/21 06:40 A CHILD tiotropium AdvReac Severe sore Verified 12/18/21 06:40 [From Spiriva with throat and HandiHaler] heart races Home Medications Medication Instructions Recorded Confirmed Type albuterol sulfate 90 mcg/actuation 2 puff INHALATION Q4 PRN 09/02/19 12/18/21 History aerosol inhaler (Ventolin HFA) aspirin 81 mg tablet,delayed 81 mg PO DAILY 09/02/19 12/18/21 Hi story release (Aspir-) atorvastatin 10 mg tablet 10 mg PO DAILY 09/02/19 12/18/21 Histo ry metoprolol tartrate 25 mg tablet 12.5 mg PO BID 09/02/19 2 History budesonide-formoterol HFA 160 2 puffs INH BID #6 gm 09/06/19 12/18/21 Rx mcg-4.5 mcg/actuation aerosol inhaler (Symbicort) famotidine 20 mg tablet 20 mg PO BID #60 tab 09/06/19 12/18/21 Rx walker #1 ea 02/27/20 08/18/21 Rx furosemide 20 mg tablet 20 mg PO DAILY 12/18/21 12/18/21 History potassium chloride 10 mEq 10 meq PO DAILY 12/18/21 12/18/21 Histo ry capsule,extended release Past Med/Surg History Medical History COPD (chronic obstructive pulmonary disease) Dependence on nocturnal oxygen therapy Iliac artery stenosis, bilateral With stent placement.Paroxysmal atrial tachycardia Pulmonary nodule Smoker Surgical History History of appendectomy History of tonsillectomy S/P [facility] Family History Father , age 61 yr Myocardial infarctionMother , In 70's Colorectal cancer Social History Smoking Status: Current every day smoker Tobacco Type: Cigarettes Cigarettes Per Day: 10; Second Hand Exposure: No; Tobacco Cessation Education Requested by Patient: No Hx Alcohol Use: No Hx Substance Use: No Preferred Language: Armenian Communication Ability: Effective Lawyer Real Estate Required: No Beliefs That Will Affect Care: None marital status: Current Living Situation: Spouse Feels Safe at Home: Yes Assistive Devices: Oxygen - Continuous Results & Data ([facility]) Vital Signs (Past 12 Hours) Vital Signs Temp Pulse Resp BP Pulse Ox 12/18/21 07:08 36.8 C 54 L 22 132/73 96 12/18/21 06:51 36.8 C 54 L 22 132/73 96 Signed By: <Electronically signed by Dennis Gonzalez MD> 12/18/21 0829 Created:12/18/21 0828 The status of this report isSigned. Draft = Not yet reviewed or approved by Medical Physician. Signed = Reviewed and approved by Medical Physician. Allergies Allergy/AdvReac Type Severity Reaction Status Date / Time Sulfa (Sulfonamide Allergy Severe "BLOOD Verified 01/12/22 06:53 Antibiotics) POISONING" Penicillins Allergy Unknown HAPPENED Verified 01/12/22 06:53 A CHILD tiotropium AdvReac Severe sore Verified 01/12/22 06:53 [From Spiriva with throat and HandiHaler] heart races Home Medications Medication Instructions Recorded Confirmed Type albuterol sulfate 90 mcg/actuation 2 puff INHALATION Q4 PRN 09/02/19 01/12/22 History aerosol inhaler (Ventolin HFA) aspirin 81 mg tablet,delayed 81 mg PO QPM 09/02/19 01/12/22 History release (Aspir-) atorvastatin 10 mg tablet 10 mg PO QAM 09/02/19 01/12/22 History metoprolol tartrate 25 mg tablet 12.5 mg PO BID 09/02/19 01/12/22 History budesonide-formoterol HFA 160 2 puffs INH BID #6 gm 09/06/19 01/12/22 Rx mcg-4.5 mcg/actuation aerosol inhaler (Symbicort) famotidine 20 mg tablet 20 mg PO BID #60 tab 09/06/19 01/12/22 Rx walker #1 ea 02/27/20 08/18/21 Rx furosemide 20 mg tablet 20 mg PO QAM 12/18/21 01/12/22 History potassium chloride 10 mEq 10 meq PO QAM 12/18/21 01/12/22 History capsule,extended release Past Med/Surg History Medical History Atrial fibrillation pt reports history of atrial fibrillation; no application penetration tester. PCP manages per pt. intermittent palpitations, chronic without change or worsening. COPD (chronic obstructive pulmonary disease) controlled, stable per pt, last rescue inhaler use several yrs ago Coronary artery calcification Dependence on nocturnal oxygen therapy 2 LPM qHS GERD (gastroesophageal reflux disease) controlled, stable per pt Hearing loss History of anesthesia reaction < 5 yrs ago, limitation on anesthetic administration due to hypotension per pt per provider, woke up during colonoscopy Iliac artery stenosis, bilateral With stent placement. Paroxysmal supraventricular tachycardia Peripheral arterial disease Pulmonary nodule [place] Pulmonology monitoring Sleep apnea on supplemental oxygen 2L HS Smoker Surgical History History of appendectomy History of colonoscopy History of tonsillectomy History of vascular surgery 12/18/21 [facility] - Left Lower Extremity Arteriogram, Ultrasound Localization of Right Femoral Artery, Mechanical Closure of Right Femoral Artery S/P insertion of iliac artery stent S/P [facility] Family History Father , age 61 yr Myocardial infarction Mother , In 70's Colorectal cancer Social History Smoking Status: Current every day smoker Tobacco Type: Cigarettes Cigarettes Per Day: 10; Second Hand Exposure: No; Do You Dip or Chew Tobacco: No; Tobacco Cessation Education Requested by Patient: No Hx Alcohol Use: No Hx Substance Use: No Preferred Language: Armenian Communication Ability: Effective Lawyer Real Estate Required: No Beliefs That Will Affect Care: None marital status: Current Living Situation: Spouse Feels Safe at Home: Yes Safety Concerns: Feels Safe At This Time Assistive Devices: Oxygen - Continuous Assistive Devices Comment: oxygen at night only Results & Data ([facility]) Vital Signs (Past 12 Hours) Vital Signs Temp Pulse Resp BP Pulse Ox 01/12/22 07:00 36.5 C 50 L 16 117/64 96
--- NOTE | 2022-01-12 07:47 | History & Physical Bridge Note ---
Date of Service January 12, 2022 History & Physical Bridge Note Patient underwent arteriography which showed significant stenosis of the left common femoral artery and possible right iliac stenosis. She is admitted at this time for endarterectomy of her left common femoral artery and possible right iliac artery stenting. I have discussed the risks options and benefits of the procedure with the patient. The patient understands the risks options and benefits and agrees to the procedure. I have examined the patient, reviewed the History & Physical and in the interval since the performance of the History & Physical I have noted the following changes of clinical significance: no changes noted
[2022-01-12 08:07] LABS: BUN Creatinine Ratio 18.6 (10-20); Calcium 9.2 mg/dl (8.5-10.1); Est GFR (African American) 99.6 ml/min; Potassium 3.8 mmol/L (3.5-5.1)
[2022-01-12] MEDS ORDERED: KETAMINE 50 MG/5 ML SYRINGE ONE (08:24)
[2022-01-12] MEDS ORDERED: ONDANSETRON INJ 2 MG/ML 2 ML VIAL ONE (08:56)
[2022-01-12] MEDS ORDERED: PROPOFOL IV EMULSION 10 MG/ML 20 ML VIAL IV ONE (08:56)
[2022-01-12] MEDS ORDERED: DEXAMETHASONE SOD INJ 4 MG/ML VIAL ONE (08:56)
[2022-01-12] MEDS ORDERED: LIDOCAINE 2% 2 ML VIAL/AMP(20MG/ML) INFIL ONE (08:56)
[2022-01-12] MEDS ORDERED: GLYCOPYRROLATE 0.2 MG/ML VIAL ONE (08:56)
[2022-01-12] MEDS ORDERED: VISIPAQUE IV PRN (11:17)
--- NOTE | 2022-01-12 11:52 | Procedure Note ---
Angiogram Post Procedure Fluoroscopy Time (minutes): 6.9 Radiation (mGy): 111.4 Contrast: 45cc Post Operative Report Pre & Post Diagnosis Operation Date: 01/12/22 08:00 Pre-Op Diagnosis: Peripheral Artery Disease with Claudication Post-Op Diagnosis: Peripheral Artery Disease with Claudication I identified the patient and participated in the time-out.: Yes Procedure Operation Date: 01/12/22 08:00 Actual Procedures p Left Common Femoral Artery Endarterectomy with Bovine Patch(Left) - Dennis Gonzalez MD s Right External iliac artery angiogram with stenting(Right) - Dennis Gonzalez MD Surgeon Dennis Gonzalez MD Excellence Specialist Nikki Sena MD Estimated Blood Loss 100 Findings Consistent with Post-Op Diagnosis Specimens none Anesthesia Type General Disposition Accompanied Patient To Recovery: No Disposition: Recovery Room Indications This is a 71 year old female with history of peripheral arterial disease and prior bilateral common iliac artery stenting who has bilateral lower extremity claudication. On pre-operative CTA she has severe stenosis of the right external iliac artery and the left common femoral artery. She presents for left common femoral endarterectomy and aortoiliac angiography with possible intervention. Description of Procedure The patient was taken to the operating suite and placed on the operating room table in the supine position. The patient's identity, procedure, and procedure site were verified. The patient was placed under general anesthesia. The bilateral groins and abdomen were prepped and draped in the usual sterile fashion. A team timeout was performed. A longitudinal incision was made in the left groin over the common femoral artery pulsation. The common femoral artery and the proximal superficial femoral artery and profunda femoris arteries were dissected out. There was significant plaque along most of the common femoral artery and proximal superficial femoral artery however soft sites suitable for clamping were identified in the proximal common femoral artery, superficial femoral artery, and profunda femoris artery. The patient was heparinized. Vascular clamps were placed. A longitudinal arteriotomy was made along the common femoral artery and extended into the proximal superficial femoral artery. Endarterectomy was performed of the common femoral artery and proximal superficial femoral artery. The plaque was transected proximally and distally and the shelf of the remaining plaque was tacked down both proximally and dis tally using 6-0 prolene sutures. Remaining mobile plaque was removed. A bovine pericardial patch was sewn onto the arteriotomy using running 5-0 prolene sutures. Prior to completion of the patch angioplasty the inflow and outflow were flushed. After completing the patch the vascular clamps were removed and a good pulsation was noted in the common femoral, superficial femoral, and profunda femoris arteries. Then we turned our attention to the angiography portion of the case. A 19G cook needle was used to access the common femoral artery in the newly placed patch. A J-wire was advanced through the needle. The needle was removed and an 8F short sheath was advanced over the wire. Hand injection of contrast was used to perform angiography in the left iliac system. No flow-limiting stenoses of the left iliac system were noted. Pressures transduced with the sheath in the distal external iliac artery were equal to systemic pressure taken via blood pressure cuff on the arm. An angled glidewire was advanced into the aorta. A rim catheter was advanced over the wire. The right iliac system was accessed and the glidewire was advanced down into the right femoral system. The right iliac system was imaged angiographically using hand injection of contrast. A severe flow-limiting stenosis in the proximal-mid right external iliac artery was noted. The floppy angled glidewire was exchanged for a stiff angled glidewire. The catheter was removed. The short 8F sheath was exchanged for a 45 cm 8F destination sheath. Balloon angioplasty of the stenotic area in the external iliac artery was performed with an 8mm armada balloon. Resolution of waist was noted. Repeat angiography demonstrated extravasation of contrast from the stenotic area of the external iliac artery. A 7x50 viabahn stent was deployed over this area. Balloon angioplasty with 7x40 armada balloon was performed along the length of the stent. Repeat angiography displayed no further extravasation. The patient's blood pressure had decreased significantly at the time of extravasation however after stent deployment and post-stent balloon angioplasty the blood pressure improved and stabilized. The sheath was pulled back into the right common iliac artery and repeat angiography showed a patent right hypogastric artery, brisk flow through the external iliac stent with no residual stenosis and no further extravasation. A 5-0 prolene was used to repair the access site in the left common femoral artery patch. Hemostasis was obtained. The femoral sheath was closed with several interrupted 2-0 vicryl sutures in a horizontal mattress fashion. The subcutaneous tissue was closed with two more layers of interrupted 2-0 vicryl sutures. The dermis was closed with a running 3-0 vicryl suture. The skin was closed with gill. A provena wound vac was placed over the incision. At the conclusion of the case the patient had weakly palpable dorsalis pedis pulses bilaterally. On doppler insonation there were multiphasic dorsalis pedis and posterior tibial artery signals. All needle, instrument, and sponge counts were correct. The patient was taken to the recovery room in satisfactory condition. Dr. Gonzalez was present and scrubbed for the duration of the procedure. I attest to the content of the Intraoperative Record and any orders documented therein. Any exceptions are noted below.
[2022-01-12] MEDS ORDERED: FLUMAZENIL 0.1 MG/1 ML 10 ML VIAL IV PRN (12:09)
[2022-01-12] MEDS ORDERED: ATROPINE SULFATE 0.1 MG/ML 10ML SYR IV PRN (12:09)
[2022-01-12] MEDS ORDERED: fentaNYL citrate 100 MCG/2 ML VIAL IV PRN (12:09)
[2022-01-12] MEDS ORDERED: NALOXONE HCL 0.4 MG/1 ML VIAL/CARP IV PRN (12:09)
[2022-01-12] MEDS ORDERED: LABETALOL HCL IV 5 MG/ML 20ML IV PRN (12:09)
[2022-01-12] MEDS ORDERED: ePHEDrine sulfate 50 MG/ML AMP IV PRN (12:09)
[2022-01-12] MEDS ORDERED: ONDANSETRON INJ 2 MG/ML 2 ML VIAL IV PRN (12:09)
[2022-01-12] MEDS ORDERED: PROMETHAZINE HCL 12.5 MG in SODIUM CHLORIDE 0.9% 50 ML IV PRN (12:09)
--- NOTE | 2022-01-12 12:09 | Post Operative Brief Note ---
Immediate Post Op Note v1 Date of Surgery January 12, 2022 Pre & Post Diagnosis Operation Date: 01/12/22 08:00 Pre-Op Diagnosis: Peripheral Artery Disease with Claudication Post-Op Diagnosis: Peripheral Artery Disease with Claudication I identified the patient and participated in the time-out.: Yes Procedure Operation Date: 01/12/22 08:00 Actual Procedures p Left Common Femoral Artery Endarterectomy with Bovine Patch(Left) - Dennis Gonzalez MD s Right External iliac artery angiogram with stenting(Right) - Dennis Gonzalez MD Surgeon Dennis Gonzalez MD Supervisor Net Making Nikki Sena MD Estimated Blood Loss 100 Findings Consistent with Post-Op Diagnosis Drains Altman Catheter Anesthesia Type General Complications none Disposition Accompanied Patient To Recovery: No Disposition: Recovery Room
[2022-01-12] MEDS ORDERED: SODIUM CHLORIDE 0.9% 1000ML 500 ML IV ONE (12:22)
[2022-01-12 12:24] LABS: Basophils # (auto) 0.02 K/uL (0-0.2); Basophils % (auto) 0.2 %; Eosinophils # (auto) 0.03 K/uL (0-0.5); Eosinophils % (auto) 0.3 %; Hematocrit (blood only) 25.1 % (37-47); Hemoglobin 8.3 g/dL (12.0-16.0); Immature Granulocytes # (auto) 0.02 K/uL (0.00-0.02); Immature Granulocytes % (auto) 0.2 %; Lymphocytes # (auto) 0.97 K/uL (1.2-3.4); Lymphocytes % (auto) 10.3 %; Mean Corpuscular Hemoglobin 31.3 pg (25-34); Mean Corpuscular Volume 94.7 fL (80-100); Monocytes # (auto) 0.15 K/uL (0.11-0.59); Monocytes % (auto) 1.6 %; Neutrophils # (auto) 8.21 K/uL (1.4-6.5); Neutrophils % (auto) 87.4 %; Platelet Count 191 K/uL (130-400); RDW Coefficient of Variation 13.1 % (11.5-14.5); RDW Standard Deviation 45.5 fL (36.4-46.3); Red Blood Count 2.65 M/uL (4.2-5.4)
[2022-01-12 12:27] LABS: Mean Corpuscular Hgb Conc 33.1 g/dL (32-36)
[2022-01-12] MEDS ORDERED: SODIUM CHLORIDE 0.9% 250 ML IV PRN (12:48)
--- NOTE | 2022-01-12 14:55 | Anesthesiology Progress Note ---
Date of Service January 12, 2022 Anesthesia Post Procedure Vital Signs Vital Signs: Temp Pulse Pulse Resp BP BP BP 01/12/22 14:50 61 18 96/64 L 01/12/22 14:40 61 18 105/63 93/59 L 01/12/22 14:30 64 18 98/52 L 101/49 L 01/12/22 14:20 75 18 95/51 L 97/43 L 01/12/22 14:10 36.3 C L 72 18 85/53 L 90/42 L 01/12/22 14:05 36.2 C L 65 18 94/49 L 90/43 L 01/12/22 14:00 36.3 C L 58 L 18 89/52 L 93/46 L 01/12/22 13:55 36.3 C L 59 L 18 90/51 L 92/73 L 01/12/22 13:50 36.2 C L 59 L 17 92/42 L 94/48 L 01/12/22 13:45 36.3 C L 64 18 89/50 L 90/45 L 01/12/22 13:39 36.4 C L 61 20 91/48 L 91/41 L 01/12/22 13:30 36.4 C L 60 20 90/52 L 99/47 L 01/12/22 13:20 79 18 89/53 L 91/48 L 01/12/22 13:10 75 18 90/53 L 94/43 L 01/12/22 13:00 85 20 97/50 L 99/46 L 01/12/22 12:50 77 18 100/50 L 97/49 L 01/12/22 12:40 84 18 93/48 L 81/39 L 01/12/22 12:30 71 20 101/43 L 99/45 L 01/12/22 12:20 75 16 86/47 L 83/48 L 01/12/22 12:15 75 18 86/53 L 77/40 L 01/12/22 12:10 89 20 88/51 L 67/33 L 01/12/22 12:00 37.4 C 86 16 98/50 L 01/12/22 07:00 36.5 C 50 L 16 117/64 Pulse Ox 01/12/22 14:50 100 01/12/22 14:40 100 01/12/22 14:30 100 01/12/22 14:20 100 01/12/22 14:10 100 01/12/22 14:05 100 01/12/22 14:00 99 01/12/22 13:55 99 01/12/22 13:50 99 01/12/22 13:45 98 01/12/22 13:39 98 01/12/22 13:30 97 01/12/22 13:20 96 01/12/22 13:10 96 01/12/22 13:00 97 01/12/22 12:50 97 01/12/22 12:40 97 01/12/22 12:30 93 01/12/22 12:20 100 01/12/22 12:15 100 01/12/22 12:10 100 01/12/22 12:00 100 01/12/22 07:00 96 Transfer of Care Handoff Completed per policy Notes Mental Status: alert / awake / arousable Patient Amnestic to Procedure: Yes Nausea / Vomiting: adequately controlled Pain: adequately controlled Airway Patency, RR, SpO2: stable & adequate BP & HR: stable & adequate Hydration State: stable & adequate Anesthetic Complications: no major complications apparent
[2022-01-12] MEDS ORDERED: MoRPHine SULFATE 4 MG/ML 1 ML CARP\\VIAL IV PRN (15:31)
[2022-01-12] MEDS ORDERED: ALBUTEROL HFA 8 GM INHALER INH PRN (15:31)
[2022-01-12] MEDS: PROMETHAZINE HCL 12.5 MG in SODIUM CHLORIDE 0.9% 50 ML IV PRN (15:57)
[2022-01-12] MEDS: D5W AND 1/2NSS 1,000 ML IV SCH ×2 (15:59→23:30)
[2022-01-12] MEDS: CLINDAMYCIN 600 MG/54 ML BAG IV SCH ×2 (16:34→23:30)
[2022-01-12 17:09] LABS: Hematocrit (blood only) 29.5 % (37-47); Hemoglobin 9.5 g/dL (12.0-16.0)
[2022-01-12] MEDS: ASPIRIN 81 MG ECTAB PO SCH (20:25)
[2022-01-12] MEDS: FAMOTIDINE 20 MG TAB PO SCH (20:26)
[2022-01-12] MEDS: METOPROLOL TARTRATE 25 MG TAB PO SCH (20:27)
[2022-01-13 07:12] LABS: Basophils # (auto) 0.01 K/uL (0-0.2); Basophils % (auto) 0.1 %; Eosinophils # (auto) 0.03 K/uL (0-0.5); Eosinophils % (auto) 0.3 %; Hemoglobin 9.3 g/dL (12.0-16.0); Immature Granulocytes # (auto) 0.03 K/uL (0.00-0.02); Immature Granulocytes % (auto) 0.3 %; Mean Corpuscular Hemoglobin 30.4 pg (25-34); Mean Corpuscular Hgb Conc 32.1 g/dL (32-36); Mean Corpuscular Volume 94.8 fL (80-100); Mean Platelet Volume 9.7 fL (7.4-10.4); Monocytes # (auto) 1.18 K/uL (0.11-0.59); Monocytes % (auto) 12.4 %; Neutrophils % (auto) 64.9 %; Platelet Count 169 K/uL (130-400); RDW Coefficient of Variation 14.6 % (11.5-14.5); RDW Standard Deviation 49.9 fL (36.4-46.3); Red Blood Count 3.06 M/uL (4.2-5.4); White Blood Count 9.55 K/uL (4.8-10.8)
[2022-01-13 07:32] LABS: Calcium 7.9 mg/dl (8.5-10.1); Creatinine Clr Calc Pharmacy 82.2 ml/min; Est GFR (African American) 114.4 ml/min; Est GFR (Non-African American) 98.7 ml/min; Potassium 3.9 mmol/L (3.5-5.1)
[2022-01-13] MEDS: FAMOTIDINE 20 MG TAB PO SCH ×2 (08:08→20:29)
[2022-01-13] MEDS: FUROSEMIDE 20 MG TAB PO SCH (08:08)
[2022-01-13] MEDS: POTASSIUM CHLORIDE 10 MEQ TABCR PO SCH (08:08)
[2022-01-13] MEDS: ATORVASTATIN 10 MG TAB PO SCH (08:08)
[2022-01-13] MEDS: METOPROLOL TARTRATE 25 MG TAB PO SCH ×2 (08:10→20:29)
[2022-01-13] MEDS: FLUTICASONE/VILANTEROL 100/25MCG 14 PUFFS/INHALER INH SCH (08:13)
[2022-01-13] MEDS: D5W AND 1/2NSS 1,000 ML IV SCH ×3 (08:13→23:47)
--- NOTE | 2022-01-13 08:49 | Surgery Progress Note ---
Date of Service January 13, 2022 Assessment & Plan (1) S/P vascular surgery: Plan: Pt is overall doing well post op. HGb 9 today after 1 U PRBC yesterday. BP stable. Increase activity today. Taking PO well. Encouraged use of pain medication if needed. Admission and Anticipated Discharge Date Admission Date: January 12, 2022 Subjective 71 yo f POD #1 after L common fem endarterectomy with GRADER OPERATOR of external iliac artery resulting in rupture of artery, requiring viabahn stent placement, seen in f/u today. Pt states having some pain in L groin and LLQ/pelvic area. Admits fatigue today. Denies any nausea, SOB, chest pain, new leg pain or complaints. Review of Systems Review of Systems: All systems reviewed & are unremarkable except as noted in HPI & below Physical Exam Constitutional: WD/WN, vitals as above healthy appearing, cooperative and comfortable; not in distress Respiratory: normal respiratory effort Auscultation: lungs clear to auscultation bilaterally and + diminished lung sounds Cardiovascular: Rate/Rhythm: regular rate and regular rhythm Vessels: posterior tibial pulses present (+1 RLE, nonpalpable LLE), dorsalis pedis pulses present (LLE +1, RLE +2) and radial pulses present; + abnormal peripheral pulses Extremities: normal capillary refill; no edema Gastrointestinal (Abdomen): Inspection/Auscultation: abdomen normal to inspection and normal bowel sounds; abdomen not distended Percussion/Palpation: abdomen soft; abdomen nontender Musculoskeletal: no cyanosis or clubbing, extremities motor strength 5/5 Skin: + incision (L groin incision C/D/I with prevena vac in place. working appropriately) Neurologic: moves all extremities and awake Psychiatric: A+Ox3, euthymic affect Results & Data ([facility]) Vital Signs (Past 12 Hours) Vital Signs Temp Pulse Pulse Resp BP BP Pulse Ox 01/13/22 08:09 74 112/66 01/13/22 07:54 70 01/13/22 06:57 36.7 C 57 L 16 97/63 L 98 01/13/22 03:40 36.6 C 61 18 99/62 L 97 01/12/22 23:37 01/12/22 22:54 36.7 C 60 16 93/54 L 99 Pulse Ox 01/13/22 08:09 01/13/22 07:54 01/13/22 06:57 01/13/22 03:40 01/12/22 23:37 99 01/12/22 22:54
[2022-01-13] MEDS: oxyCODONE/ACETAMINOPHEN 5mg/325mg TAB PO PRN ×2 (09:42→20:31)
[2022-01-13] MEDS: ASPIRIN 81 MG ECTAB PO SCH (20:29)
[2022-01-14] MEDS: D5W AND 1/2NSS 1,000 ML IV SCH (07:54)
[2022-01-14] MEDS: FUROSEMIDE 20 MG TAB PO SCH (08:17)
[2022-01-14] MEDS: METOPROLOL TARTRATE 25 MG TAB PO SCH ×2 (08:17→20:39)
[2022-01-14] MEDS: FLUTICASONE/VILANTEROL 100/25MCG 14 PUFFS/INHALER INH SCH (08:17)
[2022-01-14] MEDS: FAMOTIDINE 20 MG TAB PO SCH ×2 (08:18→20:33)
[2022-01-14] MEDS: ATORVASTATIN 10 MG TAB PO SCH (08:19)
[2022-01-14] MEDS: POTASSIUM CHLORIDE 10 MEQ TABCR PO SCH (08:19)
--- NOTE | 2022-01-14 15:12 | Surgery Progress Note ---
Date of Service January 14, 2022 Assessment & Plan (1) S/P vascular surgery: Plan: Pt is overall doing well post op day 2. Increase activity. Continue pain control. D/C home tomorrow if she increases activity. Admission and Anticipated Discharge Date Admission Date: January 12, 2022 Subjective 71 yo f POD #2 after L common fem endarterectomy and JUNIOR ACCOUNTANT of R external iliac artery resulting in rupture of artery, requiring viabahn stent placement, seen in f/u today. Pt states having some pain in L groin and LLQ/pelvic area, somwhat improved compared to yesterday. Admits fatigue today, but states better than yesterday. Denies any nausea, SOB, chest pain, new leg pain or complaints. Review of Systems Review of Systems: All systems reviewed & are unremarkable except as noted in HPI & below Physical Exam Constitutional: WD/WN, vitals as above healthy appearing, cooperative and comfortable; not in distress Respiratory: normal respiratory effort Auscultation: lungs clear to auscultation bilaterally and + diminished lung sounds Cardiovascular: Rate/Rhythm: regular rate and regular rhythm Vessels: posterior tibial pulses present (+1 BLE), dorsalis pedis pulses present (LLE +1, RLE +2) and radial pulses present; + abnormal peripheral pulses Extremities: normal capillary refill; no edema Gastrointestinal (Abdomen): Inspection/Auscultation: abdomen normal to i nspection and normal bowel sounds; abdomen not distended Percussion/Palpation: abdomen soft; abdomen nontender Musculoskeletal: no cyanosis or clubbing, extremities motor strength 5/5 Skin: + incision (L groin incision C/D/I with prevena vac in place. working appropriately) Neurologic: moves all extremities and awake Psychiatric: A+Ox3, euthymic affect Results & Data ([facility]) Vital Signs (Past 12 Hours) Vital Signs Temp Pulse Pulse Resp BP BP Pulse Ox 01/14/22 11:36 36.7 C 71 18 105/61 93 01/14/22 08:00 63 01/14/22 07:32 36.9 C 83 18 128/70 100 01/14/22 03:40 36.6 C 67 19 112/74 100 Pulse Ox 01/14/22 11:36 01/14/22 08:00 94 01/14/22 07:32 01/14/22 03:40
[2022-01-14] MEDS: PROMETHAZINE HCL 12.5 MG in SODIUM CHLORIDE 0.9% 50 ML IV PRN (17:07)
[2022-01-14] MEDS: ASPIRIN 81 MG ECTAB PO SCH (20:33)
[2022-01-15] MEDS: oxyCODONE/ACETAMINOPHEN 5mg/325mg TAB PO PRN (00:20)
[2022-01-15] MEDS: FLUTICASONE/VILANTEROL 100/25MCG 14 PUFFS/INHALER INH SCH (08:11)
[2022-01-15] MEDS: METOPROLOL TARTRATE 25 MG TAB PO SCH (08:11)
[2022-01-15] MEDS: FAMOTIDINE 20 MG TAB PO SCH (08:12)
[2022-01-15] MEDS: POTASSIUM CHLORIDE 10 MEQ TABCR PO SCH (08:12)
[2022-01-15] MEDS: ATORVASTATIN 10 MG TAB PO SCH (08:12)
[2022-01-15] MEDS: FUROSEMIDE 20 MG TAB PO SCH (08:12)
--- NOTE | 2022-01-15 09:25 | Surgery Progress Note ---
Date of Service January 15, 2022 Assessment & Plan (1) S/P vascular surgery: Plan: Pt is overall doing well post op day 3. Discussed with Dr Gonzalez. D/C home today.. 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 Pt states having some pain in L groin and LLQ/pelvic area, controlled with medication. Admits fatigue, but states better than yesterday. Denies any nausea, SOB, chest pain, new leg pain or complaints. Review of Systems Review of Systems: All systems reviewed & are unremarkable except as noted in HPI & below Physical Exam Constitutional: WD/WN, vitals as above healthy appearing, cooperative and comfortable; not in distress Respiratory: normal respiratory effort Auscultation: lungs clear to auscultation bilaterally and + diminished lung sounds Cardiovascular: Rate/Rhythm: regular rate and regular rhythm Vessels: posterior tibial pulses present (+1 BLE), dorsalis pedis pulses present (LLE +1, RLE +2) and radial pulses present; + abnormal peripheral pulses Extremities: normal capillary refill; no edema Gastrointestinal (Abdomen): Inspection/Auscultation: abdomen normal to inspection and normal bowel sounds; abdomen not distended Percussion/Palpation: abdomen soft; abdomen nontender Musculoskeletal: no cyanosis or clubbing, extremities motor strength 5/5 Skin: + incision (L groin incision C/D/I) Neurologic: moves all extremities and awake Psychiatric: A+Ox3, euthymic affect Results & Data ([facility]) Vital Signs (Past 12 Hours) Vital Signs Temp Pulse Pulse Resp BP BP Pulse Ox 01/15/22 08:00 01/15/22 07:42 60 01/15/22 07:32 36.5 C 58 L 16 97/61 L 92 01/15/22 04:00 36.5 C 61 12 93/58 L 93 01/15/22 00:00 37.7 C H 65 18 99/62 L 96 01/14/22 23:59 01/14/22 22:25 67 Pulse Ox 01/15/22 08:00 93 01/15/22 07:42 01/15/22 07:32 01/15/22 04:00 01/15/22 00:00 01/14/22 23:59 96 01/14/22 22:25
--- NOTE | 2022-01-15 09:28 | Discharge Summary ---
Date of Service January 15, 2022 Admission HPI Per Admitting Provider ERTA ZAVALA [id number] [facility], [id number] History & Physical Report Signed with Addenda Patient:RETA ZAVALA I Admit Date:12/18/21 MR#:[id number] Att Phy:Dennis Gonzalez M.D. Acct ID:[id number] Yadi Phy:Gurjit Healy M.D. Date:1950 Fam Phy: Age:71 Location:[facility] Sex:F Room/Bed: cc: ~ *NOTICE TO RECEIVING LIBERTARIAN/AGENCY This information is strictly Confidential and protected under [place] law. [place] law prohibits you from making any further disclosure of this information unless further disclosure is expressly permitted by the written consent of the person to whom it pertains or is authorized by law. A general authorization for the release of medical or other information is not sufficient for this purpose. Hospital accepts no responsibility if the information is made available to any other person, INCLUDING THE PATIENT. ADDENDUM 12/18/21829Addendum December 18, 2021 08:30 Revoew of systems is neg except for HPI Addendum Signed By: <Electronically signed by Dennis Gonzalez MD> 12/18/21829 Addendum Cosigned By: Created: 12/18/21 Date of Service December 18, 2021 History of Present Illness Primary Care Provider: Gurjit Parada MD Name: RETA ZAVALA I Patient Number: [id number] : 1950 Date of Service: 12/09/2021 Chief Complaint: _Follow-up after CTA HPI: _Ms. Zavala is a middle-aged female who presents to Dr. Gonzalez's vascular surgery clinic today regarding claudication and aortoiliac occlusive disease. Patient has undergone bilateral common iliac stenting in the past, and presented for routine follow-up about a month ago. She was complaining of some left leg claudication symptoms, and an ultrasound was performed. This was inconclusive regarding proximal disease and she was sent for CTA for further evaluation. Patient states that after walking just a few minutes, her left leg becomes very heavy and tired. She states that the symptoms are similar to what she was experiencing prior to her bilateral iliac artery stenting a few years ago. It is not quite as severe. After resting a few minutes she is able to ambulate a similar distance. Her CTA demonstrates a severe stenosis of her external iliac artery on the left side. Current Home Meds: (Last Updated 12/09 09:49) albuterol (albuterol CFC free 90 mcg/inh MDI) 2 puff inhaled qid PRN: as needed for wheezing aspirin (Aspir-Low 81 mg oral delayed release tablet) 81 mg PO Daily atorvastatin (atorvastatin 10 mg oral tablet) 10 mg PO qhs budesonide-formoterol (Symbicort 80 mcg-4.5 mcg/inh inhalation aerosol) 2 puff inhaled bid famotidine (Pepcid 20 mg oral tablet) 20 mg PO Daily furosemide (furosemide 20 mg oral tablet) 20 mg PO Daily metoprolol (Metoprolol Tartrate 25 mg oral tablet) 1.5 tab PO bid potassium chloride (Potassium Chloride (Eqv-K-Tab) 10 mEq oral tablet, extended release) 10 mEq PO Daily Allergies and Sensitivities: penicillins(unknown - reaction as a child) sulfa drugs(blood poisioning) Past Medical History: Problems: Occlusion of common femoral artery AAA (abdominal aortic aneurysm) Carotid stenosis Atherosclerosis Weight disorder Tobacco abuse Iliac artery stenosis Venous stenosis OBJECTIVE Vitals: Last Updated 12/09/21 10:02 Date Temp BP Location Pulse RR SpO2 Pain 12/09/21 0 12/09/21 106/62 Left Arm 64 96 11/19/21 136/84 Right Arm 51 96 Vital Signs are the last 3 documented. No Orthostatic Data Available Height and Weight: Last Updated 10/08/21 09:54 Date BMI Wt(kg) Wt(lb) Method Ht(cm) (ft-in) Method 10/08/21 50.4 111 Standing Scale 10/04/19 20.58 49.4 109 Standing Scale 154.94 5-1 10/02/18 48.53 107 Patient stated 154.94 5-1 Heights and Weights are the last 3 documented. Physical Exam _ Constitutional: In general patient is a healthy-appearing well-nourished well- developed middle-aged female no distress. Her abdomen is soft nontender with normoactive bowel sounds. Lungs are clear. Heart has a regular rate and rythm. Her femoral pulses are nonpalpable on the left +2 on the right. Her distal pulses are nonpalpable. ASSESSMENT: _ PLAN: _ 1 ) _iliac artery stenosis This patient appears to have severe stenosis of her left external iliac artery and has symptoms of claudication left leg. After discussion with Dr. Gonzalez, he recommends the patient undergo an aortogram with left iliac artery stenting. The procedure risks benefits and alternatives were discussed with the patient by Dr. Gonzalez. She expresses understanding and agreement to proceed. This will occur in the next few weeks at the patient's convenience. She is advised to call here with any questions or concerns. Thank you for letting us participate in the care of this patient. Signature Line Electronic Signature on File Electronically Reviewed/Signed by: Jonelle Graff PA-C Author Signature Dt/Tm:12/09/2021 10:58 AM [facility] [address] [place] [address] Electronically Reviewed/Signed by: MD Maxine Nathigner Signature Dt/Tm: 12/10/2021 08:54 AM Cleaning Maid [facility] [address] [place] [address] LM Result Type: HVI Outpt Note Date of Service: December 09, 2021 10:55 EST Authorization Status: Final Author or Import Date: DONTAE Graff Lynn on December 09, 2021 10:58 EST Verified By: MD Gonzalez Eugene J on December 10, 2021 08:54 EST Encounter info: [id number], [place] [address], Clinic, 12/09/2021 - 12/09/2021 Allergies Allergy/AdvReac Type Severity Reaction Status Date / Time Sulfa (Sulfonamide Allergy Severe "BLOOD Verified 12/18/21 06:40 Antibiotics) POISONING" Penicillins Allergy Unknown HAPPENED Verified 12/18/21 06:40 A CHILD tiotropium AdvReac Severe sore Verified 12/18/21 06:40 [From Spiriva with throat and HandiHaler] heart races Home Medications Medication Instructions Recorded Confirmed Type albuterol sulfate 90 mcg/actuation 2 puff INHALATION Q4 PRN 09/02/19 12/18/21 History aerosol inhaler (Ventolin HFA) A aspirin 81 mg tablet,delayed 81 mg PO DAILY 09/02/19 12/18/21 Hi story release (Aspir-) atorvastatin 10 mg tablet 10 mg PO DAILY 09/02/19 12/18/21 Histo ry metoprolol tartrate 25 mg tablet 12.5 mg PO BID 09/02/19 2 History budesonide-formoterol HFA 160 2 puffs INH BID #6 gm 09/06/19 12/18/21 Rx mcg-4.5 mcg/actuation aerosol inhaler (Symbicort) famotidine 20 mg tablet 20 mg PO BID #60 tab 09/06/19 12/18/21 Rx walker #1 ea 02/27/20 08/18/21 Rx furosemide 20 mg tablet 20 mg PO DAILY 12/18/21 12/18/21 History potassium chloride 10 mEq 10 meq PO DAILY 12/18/21 12/18/21 Histo ry capsule,extended release Past Med/Surg History Medical History COPD (chronic obstructive pulmonary disease) Dependence on nocturnal oxygen therapy Iliac artery stenosis, bilateral With stent placement.Paroxysmal atrial tachycardia Pulmonary nodule Smoker Surgical History History of appendectomy History of tonsillectomy S/P NICKIE-BSO Family History Father , age 61 yr Myocardial infarctionMother , In 70's Colorectal cancer Social History Smoking Status: Current every day smoker Tobacco Type: Cigarettes Cigarettes Per Day: 10; Second Hand Exposure: No; Tobacco Cessation Education Requested by Patient: No Hx Alcohol Use: No Hx Substance Use: No Preferred Language: Irish Communication Ability: Effective Quality Assurance Qa Lab Technician Required: No Beliefs That Will Affect Care: None marital status: Current Living Situation: Spouse Feels Safe at Home: Yes Assistive Devices: Oxygen - Continuous Results & Data ([facility]) Vital Signs (Past 12 Hours) Vital Signs Temp Pulse Resp BP Pulse Ox 12/18/21 07:08 36.8 C 54 L 22 132/73 96 12/18/21 06:51 36.8 C 54 L 22 132/73 96 Signed By: <Electronically signed by Dennis Gonzalez MD> 12/18/21828 Created:12/18/21827 The status of this report isSigned. Draft = Not yet reviewed or approved by Medical Physician. Signed = Reviewed and approved by Medical Physician. Admission Exam Per Admitting Provider Constitutional: In general patient is a healthy-appearing well-nourished well-developed middle-aged female no distress. Her abdomen is soft nontender with normoactive bowel sounds. Lungs are clear. Heart has a regular rate and rhythm. Her femoral pulses are nonpalpable on the left +2 on the right. Her distal pulses are nonpalpable. Principal Diagnosis 1. s/p L common fem art endarterectomy with bovine patch, LABORATORY SECRETARY/stent of R external iliac artery 2. Severe PAD and aortoiliac disease 3. Post op anemia Discharge Exam Constitutional WD/WN, vitals as above healthy appearing, cooperative and comfortable; not in distress Respiratory normal respiratory effort Auscultation: lungs clear to auscultation bilaterally and + diminished lung sounds Cardiovascular Rate/Rhythm: regular rate and regular rhythm Vessels: posterior tibial pulses present (+1 BLE), dorsalis pedis pulses present (LLE +1, RLE +2) and radial pulses present; + abnormal peripheral pulses Extremities: normal capillary refill; no edema Gastrointestinal (Abdomen) Inspection/Auscultation: abdomen normal to inspection and normal bowel sounds; abdomen not distended Percussion/Palpation: abdomen soft; abdomen nontender Musculoskeletal no cyanosis or clubbing, extremities motor strength 5/5 Skin + incision (L groin incision C/D/I) Neurologic moves all extremities and awake Psychiatric A+Ox3, euthymic affect Discharge Data Allergies Allergy/AdvReac Type Severity Reaction Status Date / Time Sulfa (Sulfonamide Allergy Severe "BLOOD Verified 01/12/22 06:53 Antibiotics) POISONING" Penicillins Allergy Unknown HAPPENED Verified 01/12/22 06:53 A CHILD tiotropium AdvReac Severe sore Verified 01/12/22 06:53 [From Spiriva with throat and HandiHaler] heart races Procedures Performed Operation Date: 01/12/22 08:00 Actual Procedures p Left Common Femoral Artery Endarterectomy with Bovine Patch(Left) - Dennis Gonzalez MD s Right External iliac artery angiogram with stenting(Right) - Dennis Gonzalez MD Ordered Studies 01/12/22 07:08 EV angio LE RT Routine Hospital Course (1) S/P vascular surgery: Pt is overall doing well post op day 3. Discussed with Dr Gonzalez. D/C home today.. Total Time Total Time Spent Total Time Spent (In Minutes): 0 3 Discharge Plan Discharge Items Patient Disposition: Home - Self-Care Reason For Visit: Peripheral Artery Disease with Claudication Discharge Diagnosis: 1. s/p Left Common Femoral Artery Endarterectomy with Bovine patch, Right external iliac artery LABORATORY SECRETARY and viabahn stent placement 2. Severe PAD and Aortoiliac disease Activity: Per Instructions section Lifting: No more than 10 pounds Lifting Comment: for 2 weeks Non-emergency contact: Primary Care Provider Call non-emergency contact if: you have any medication questions, your pain is not controlled, your pain is concerning for you, you have a fever, your wound has increased redness and your wound has increased drainage Follow-up/Referrals: Gurjit Paarda MD [Primary Care Provider] - (Follow up with PCP within 2 weeks.) Dennis Gonzalez MD [Physician] - (Follow up with Dr Gonzalez or Jonelle Graff PA-C in 2 weeks for staple removal) Diet: Heart Healthy Addtl Attending Provider Instructions: ACTIVITY RECOMMENDATIONS: 1. No dressing required to L groin, but may place a small dry dressing if drainage occurs 2. May shower and dry wound gently, no bathing or soaking in water. 3. No lifting more than 10 lbs until follow up appt. 4. Call PCP for a follow up appt. 5. Call [phone] for a follow up appt with Dr Gonzalez or Jonelle Suárez. SPECIAL CARE INSTRUCTIONS: Call your doctor if: * Temperature above 101 degrees * Pain not relieved by pain medicine ordered * There is increased drainage or redness from any incision * You have any unanswered questions or concerns. Pending Studies at Discharge: No Stand-Alone Forms: My [employer], Smoking Cessation Medications and DC Order Prescriptions: New oxycodone-acetaminophen [Percocet] 5-325 mg Tablet 1 - 2 tab PO Q4H PRN (Reason: Pain) Qty: 30 RF: 0 Continued (DME) walker Misc See Rx Instructions .ROUTE .MEDSUPPLY Qty: 1 RF: 0 atorvastatin 10 mg tablet 10 mg PO QAM RF: 0 aspirin [Aspir-81] 81 mg Tablet,Delayed Release (Dr/Ec) 81 mg PO QPM RF: 0 albuterol sulfate [Ventolin HFA] 90 mcg/actuation HFA aerosol inhaler 2 puff inhalation Q4 PRN (Reason: Shortness Of Breath Or Wheezing) RF: 0 metoprolol tartrate 25 mg tablet 12.5 mg PO BID RF: 0 famotidine 20 mg Tablet 20 mg PO BID Qty: 60 RF: 0 budesonide-formoterol [Symbicort] 160-4.5 mcg/actuation HFA aerosol inhaler 2 puffs INH BID Qty: 6 RF: 0 potassium chloride 10 mEq Capsule, Extended Release 10 meq PO QAM RF: 0 furosemide 20 mg Tablet 20 mg PO QAM RF: 0 Discharge Orders: Discharge Order (Routine); Ordered 01/15/22 Ordered By: Jonelle Graff Admission Data Admit Date/Time: 01/12/22 07:48 Attending Provider: Dennis Gonzalez Admit Provider: Dennis Gonzalez Primary Care Provider: Gurjit Parada Other Providers: [facility]
== END 2022-01-15 10:22 | disposition home or self-care (01) | DRG 253 ==
LOC: ASU 06:10 → 2S 07:48
DX: Z90.09 Acquired absence of other part of head and neck; Z88.8 Allergy status to other drugs, medicaments and biological substances; Y83.8 Other surgical procedures as the cause of abnormal reaction of the patient, or of later complication, without mention of misadventure at the time of the procedure; I70.8 Atherosclerosis of other arteries; Z90.710 Acquired absence of both cervix and uterus; Z88.0 Allergy status to penicillin; Z88.2 Allergy status to sulfonamides; Z79.82 Long term (current) use of aspirin; Z90.722 Acquired absence of ovaries, bilateral; F17.210 Nicotine dependence, cigarettes, uncomplicated; I97.51 Accidental puncture and laceration of a circulatory system organ or structure during a circulatory system procedure; J44.9 Chronic obstructive pulmonary disease, unspecified; I70.212 Atherosclerosis of native arteries of extremities with intermittent claudication, left leg; I74.09 Other arterial embolism and thrombosis of abdominal aorta; D62 Acute posthemorrhagic anemia; Z90.49 Acquired absence of other specified parts of digestive tract; Z95.5 Presence of coronary angioplasty implant and graft